=== PATIENT | female | born 1950 | race Caucasian/White ===

== ENCOUNTER 2016-06-11 08:27 | Outpatient (CLI) | payer OTHER | END 2016-06-11 08:28 | disposition home or self-care (01) | DX: E03.9 Hypothyroidism, unspecified (principal); E55.9 Vitamin D deficiency, unspecified; E11.9 Type 2 diabetes mellitus without complications; Z79.899 Other long term (current) drug therapy ==

== ENCOUNTER 2017-03-09 14:03 | Outpatient (CLI) | payer MEDICARE, OTHER ==
--- NOTE | 2017-03-12 15:04 | DEXA Report ---
DEXA SCAN: 03/09/2017 HISTORY: Primary ovarian failure. Steroid use, thyroid replacement therapy, and hormone replacement therapy. TECHNIQUE: Dual energy x-ray absorptiometry (DXA) was performed on a [employer] system. Regions measured are the AP spine, femoral neck, and, if needed, forearm. COMPARISON: None. In accordance with the International Society for Clinical Densitometry (ISCD) guidelines, data from previous exams may be reanalyzed using current recommendations and techniques. This is done to allow a more accurate basis for comparison with the current study. FINDINGS LUMBAR SPINE DATA: REGION BMD (g/cm/cm) T-SCORE Z-SCORE L1 0.966 -1.4 -0.9 L2 1.143 -0.5 0.0 L3 1.086 -0.9 -0.5 L4 1.369 1.4 1.9 TOTAL 1.157 -0.2 0.3 NOTE: All evaluable vertebrae are used for classification. HIP DATA: REGION BMD (g/cm/cm) T-SCORE Z-SCORE Neck 0.851 -1.3 -0.6 TOTAL 1.021 0.1 0.5 NOTE: The femoral neck or total proximal femur, whichever is lowest, is used for classification. IMPRESSION THE WHO CLASSIFICATION BASED ON THE INTERNATIONAL REFERENCE STANDARD: OSTEOPENIA , BASED ON THE LEFT FEMORAL NECK. FRACTURE RISK: INCREASED. RECOMMENDATION: Patients with diagnosis of osteoporosis or osteopenia should have regular bone mineral density assessment. For those eligible for Medicare, routine testing is allowed once every 2 years. Testing frequency can be increased for patients who have rapidly progressing disease or for those who are receiving medical therapy to restore bone mass. COMMENT: World Health Organization (WHO) definitions for osteoporosis and osteopenia: NORMAL BMD: T-score at -1.0 or higher, fracture risk is low. OSTEOPENIA BMD: T-score between -1.0 and -2.5, fracture risk is increased. OSTEOPOROSIS BMD: T-score at -2.5 or lower, fracture risk high. National Osteoporosis Foundation recommends: 1. Obtain adequate dietary calcium (at least 1200 mg per day) and vitamin D (400 -800 international units per day). 2. Participate, as appropriate, in regular weightbearing and muscle- strengthening exercise. 3. Avoid tobacco use and reduce alcohol and caffeine intake. 4. For more detailed information see the website at www.NOF.org. MTDD
== END 2017-03-09 14:04 | disposition home or self-care (01) ==
LOC: DI 14:03
PROVIDERS: ATTEND Physician Assistant Medical
DX: M85.88 Other specified disorders of bone density and structure, other site (principal)
CPT/HCPCS: 77080

== ENCOUNTER 2017-03-09 14:04 | Outpatient (CLI) | payer MEDICARE, OTHER ==
--- NOTE | 2017-03-10 11:17 | Mammography Report ---
BILATERAL MAMMOGRAM AND LEFT BREAST ULTRASOUND: 03/09/2017 HISTORY: Palpable lump 1 to 2-o'clock position left breast. COMPARISON: 11/09/2014, 08/26/2011, and 07/12/2010. TECHNIQUE: Bilateral digital CC and MLO projections of the breast with an additional left true later al view. There are scattered fibroglandular densities. There is no dominant mass, architectural distortion, s kin thickening, suspicious microcalcifications, or interval change since the prior mammogram. LEFT BREAST ULTRASOUND Real time scanning by the delicatessen manager with saved static images reviewed. In the left breast upper-outer quadrant, no cystic or solid mass is identified to account for the pal pable finding on clinical examination. IMPRESSION: NEGATIVE BILATERAL MAMMOGRAPHY AND LEFT BREAST ULTRASOUND. BIRADS CATEGORY: 1, NEGATIVE. SUGGEST RETURN TO ROUTINE SCREENING IN 12 MONTHS. SUGGEST CLINICAL FOLLOWUP OF THE CLINICALLY PALPAB LE FINDING. STANDARD QUALIFYING STATEMENTS 1. This examination was reviewed with the aid of Computed-Aided Detection (CAD). 2. A negative or benign imaging report should not delay biopsy if clinically suspicious findings are present. Consider surgical consultation if warranted. More than 5% of cancers are not identified b y imaging. 3. Dense breasts may obscure an underlying neoplasm. JOB #: [id number] EXT JOB #:[id number]
--- NOTE | 2017-03-10 11:18 | Ultrasound Report ---
LEFT BREAST ULTRASOUND: 03/09/2017 See the bilateral mammography report from the same day. JOB #: [id number] EXT JOB #: [id number] PEDRO
== END 2017-03-09 14:05 | disposition home or self-care (01) ==
LOC: DI 14:04
PROVIDERS: ATTEND Physician Assistant Medical
DX: N63.21 Unspecified lump in the left breast, upper outer quadrant (principal); M85.88 Other specified disorders of bone density and structure, other site
CPT/HCPCS: 76642; 77080; G0204; 77066

== ENCOUNTER 2017-05-27 15:53 | Outpatient (CLI) | payer MEDICARE, OTHER ==
[2017-05-27 14:39] LABS: BASOPHILS % (AUTO) 0.7 %; EOSINOPHILS # (AUTO) 0.1 10^3/uL (0.0-0.7); EOSINOPHILS % (AUTO) 1.8 %; HGB - HEMOGLOBIN 14.3 g/dL (12.0-16.0); LYMPHOCYTES # (AUTO) 1.4 10^3/uL (1.5-3.5); LYMPHOCYTES % (AUTO) 24.4 %; MEAN CORPUSCULAR HEMOGLOBIN 29.9 pg (27.0-31.0); MEAN CORPUSCULAR HGB CONC 34.1 g/dL (32.0-36.0); MEAN CORPUSCULAR VOLUME 87.8 fL (81.0-99.0); MEAN PLATELET VOLUME 10.4 fL (7.9-10.8); MONOCYTES # (AUTO) 0.5 10^3/uL (0.0-1.0); MONOCYTES % (AUTO) 7.8 %; NEUTROPHILS # (AUTO) 3.8 10^3/uL (1.5-6.6); NEUTROPHILS % (AUTO) 65.3 %; PLT - PLATELET COUNT 212 10^3/uL (130-450); RED BLOOD COUNT 4.77 10^6/uL (4.20-5.40); RED CELL DISTRIBUTION WIDTH 13.7 % (12.0-15.0); WHITE BLOOD COUNT 5.8 x10^3/uL (4.8-10.8)
[2017-05-27 14:54] LABS: ALBUMIN 4.3 g/dL (3.2-5.5); ALBUMIN/GLOBULIN RATIO 1.3 (1.0-2.2); BILIRUBIN,TOTAL 0.8 mg/dL (0.2-1.0); CALCIUM 9.4 mg/dL (8.5-10.3); CREATININE 0.9 mg/dL (0.4-1.0); TOTAL PROTEIN 7.6 g/dL (6.7-8.2)
[2017-05-27 16:07] LABS: HB2 TOTAL 15.9 g/dL; HEMOGLOBIN A1C 0.68 g/dL; HEMOGLOBIN A1C % 6.1 % (4.6-6.2)
== END 2017-05-27 15:54 | disposition home or self-care (01) ==
LOC: LAB.R 15:53
PROVIDERS: ATTEND Physician Assistant Medical
DX: R42 Dizziness and giddiness (principal); E11.9 Type 2 diabetes mellitus without complications; Z79.899 Other long term (current) drug therapy
CPT/HCPCS: 80053; 82607; 83036; 85025

== ENCOUNTER 2017-09-23 08:49 | Outpatient (CLI) | payer MEDICARE, OTHER ==
[2017-09-23 09:42] LABS: HEMOGLOBIN A1C 0.6 g/dL; HEMOGLOBIN A1C % 5.8 % (4.6-6.2)
== END 2017-09-23 08:50 | disposition home or self-care (01) ==
LOC: LAB 08:49
PROVIDERS: ATTEND Physician Assistant Medical
DX: E11.9 Type 2 diabetes mellitus without complications (principal); Z79.899 Other long term (current) drug therapy
CPT/HCPCS: 36415; 82947; 83036

== ENCOUNTER 2018-04-15 08:43 | Outpatient (CLI) | payer MEDICARE, OTHER ==
[2018-04-15 08:55] LABS: BASOPHILS % (AUTO) 0.6 %; EOSINOPHILS # (AUTO) 0.2 10^3/uL (0.0-0.7); EOSINOPHILS % (AUTO) 2.8 %; HGB - HEMOGLOBIN 13.9 g/dL (12.0-16.0); LYMPHOCYTES # (AUTO) 1.8 10^3/uL (1.5-3.5); LYMPHOCYTES % (AUTO) 26.9 %; MEAN CORPUSCULAR HEMOGLOBIN 30.2 pg (27.0-31.0); MEAN CORPUSCULAR HGB CONC 34.1 g/dL (32.0-36.0); MEAN CORPUSCULAR VOLUME 88.5 fL (81.0-99.0); MEAN PLATELET VOLUME 8.9 fL (7.9-10.8); MONOCYTES # (AUTO) 0.6 10^3/uL (0.0-1.0); MONOCYTES % (AUTO) 8.3 %; NEUTROPHILS # (AUTO) 4.2 10^3/uL (1.5-6.6); NEUTROPHILS % (AUTO) 61.4 %; PLT - PLATELET COUNT 210 10^3/uL (130-450); RED BLOOD COUNT 4.62 10^6/uL (4.20-5.40); WHITE BLOOD COUNT 6.9 x10^3/uL (4.8-10.8)
[2018-04-15 09:25] LABS: ALBUMIN 4.4 g/dL (3.2-5.5); ALBUMIN/GLOBULIN RATIO 1.6 (1.0-2.2); ALKALINE PHOSPHATASE 66 IU/L (42-121); ALT ALANINE AMINOTRANSFERASE 22 IU/L (10-60); AST ASPARTATE AMINOTRANSFERASE 20 IU/L (10-42); BILIRUBIN,TOTAL 0.6 mg/dL (0.2-1.0); BUN - BLOOD UREA NITROGEN 21 mg/dL (6-20); CALCIUM 9.2 mg/dL (8.5-10.3); CARBON DIOXIDE - CO2 26 mmol/L (21-32); CHLORIDE 100 mmol/L (101-111); CHOL/HDL RATIO 2.9 (<4.4); CHOLESTEROL 238 mg/dL; CREATININE 0.8 mg/dL (0.4-1.0); GFR - MDRD 72 (>89); GLUCOSE 137 mg/dL (70-100); HDL CHOLESTEROL 81 mg/dL; LDL CHOLESTEROL,CALCULATED 143 mg/dL; LDL/HDL RATIO 1.8 (<4.4); SODIUM 134 mmol/L (135-145); TOTAL PROTEIN 7.1 g/dL (6.7-8.2); VLDL CHOLESTEROL 14 mg/dL
[2018-04-15 09:27] LABS: HB2 TOTAL 15.1 g/dL; HEMOGLOBIN A1C 0.64 g/dL
== END 2018-04-15 08:44 | disposition home or self-care (01) ==
LOC: LAB 08:43
PROVIDERS: ATTEND Physician Assistant Medical
DX: E55.9 Vitamin D deficiency, unspecified (principal); E11.9 Type 2 diabetes mellitus without complications; I10 Essential (primary) hypertension; E03.9 Hypothyroidism, unspecified; Z79.899 Other long term (current) drug therapy
CPT/HCPCS: 36415; 80053; 80061; 82306; 83036; 83721; 84443; 85025

== ENCOUNTER 2018-06-02 09:55 | Outpatient (CLI) | payer MEDICARE, OTHER ==
--- NOTE | 2018-06-03 08:54 | Mammography Report ---
Reason: SCREENING MAMMO Procedure Date: 06/02/2018 Accession Number: [id number] / [id number] Procedure: VU - Screening Mammo w/Issa CPT Code: FULL RESULT: EXAM: Screening Mammo w/Issa DATE: 06/02/2018 10:33 AM CLINICAL HISTORY: Screening encounter. No reported risk factors. TECHNIQUE: Bilateral CC and MLO views were obtained. COMPARISON: 03/09/2017 through 07/12/2010. FINDINGS: The breasts demonstrate scattered fibroglandular densities bilaterally. In the left breast centrally and superiorly, 6.5 cm from the nipple on the MLO (image 65) projection is a previously obscured isodense 1.6 x 0.9 cm nodule, better seen on cc imaging 5.3 cm from the nipple on image 55. This requires additional evaluation by left breast ultrasound. Additionally, in the retroareolar lateral upper left breast approximately 3 cm from the nipple is a grouping of apparent fine calcifications with questionable architectural distortion which requires spot magnification views as well as possibly ultrasound, MLO image 39, cc image 37. No suspicious masses, clustered microcalcifications, or regions of architectural distortion are identified in the right breast. IMPRESSION: Incomplete examination RECOMMENDATION: Incomplete evaluation. Additional evaluation of 2 left breast findings with spot compression views and possibly ultrasound of the finding 3 cm from the nipple and focused left breast ultrasound of the finding in the upper left breast, 5 to 6.5 cm from the nipple depending on projection. BIRADS CATEGORY 0: Incomplete examination STANDARD QUALIFYING STATEMENTS: 1. This examination was not reviewed with the aid of Computer-Aided Detection (CAD). 2. A negative or benign imaging report should not delay biopsy if clinically suspicious findings are present. Consider surgical consultation if warrented. More than 5% of cancers are not identified by imaging. 3. Dense breasts may obscure an underlying neoplasm. 4. This examination was reviewed with the aid of 3D breast imaging (tomosynthesis).
== END 2018-06-02 09:56 | disposition home or self-care (01) ==
LOC: DI 09:55
PROVIDERS: ATTEND Physician Assistant Medical
DX: Z12.31 Encounter for screening mammogram for malignant neoplasm of breast (principal)
CPT/HCPCS: 77063; 77067

== ENCOUNTER 2018-06-22 10:06 | Outpatient (CLI) | payer MEDICARE, OTHER ==
--- NOTE | 2018-06-22 13:16 | Mammography Report ---
Reason: ABN MAMMO Procedure Date: 06/22/2018 Accession Number: [id number] / [id number] Procedure: VU - Diag Special Views Dig LT CPT Code: FULL RESULT: EXAM: Diag Special Views Dig LT DATE: 06/22/2018 11:08 AM CLINICAL HISTORY: Recall from recent screening exam 06/02/2018 for possible left breast calcifications anterior superior breast and oval 18 mm mass at 12:00. TECHNIQUE: Cone magnification left CC and MLO. 90 degree lateral 2-D/3-D mammography. COMPARISON: 06/02/2018 through 07/12/2010 FINDINGS: The breasts demonstrate scattered fibroglandular densities bilaterally. Left breast: Additional images are performed to evaluate possible faint calcifications in the anterior 12:00 breast. There are no suspicious calcifications on the coned magnified views. There is an 18 mm equal density oval mass with mixed circumscribed/partially obscured margins in the 12:00 breast middle depth which represents second finding recalled from screening. This finding is unchanged mammographically dating back to 2010 consistent with benign process. There are no suspicious masses, calcifications or areas of distortion. IMPRESSION: Left breast: No suspicious calcification in region of concern on recent screening exam. Other described finding is mammographically stable since 2010 consistent with benign process. Benign. BI-RADS Category 2. Recommend return to annual screening mammography. BI-RADS CATEGORY 2: Benign findings STANDARD QUALIFYING STATEMENTS: 1. This examination was not reviewed with the aid of Computer-Aided Detection (CAD). 2. A negative or benign imaging report should not preclude biopsy if clinically suspicious findings are present. 3. Dense breasts may obscure an underlying neoplasm. 4. This examination was reviewed with the aid of 3D breast imaging (tomosynthesis).
== END 2018-06-22 10:07 | disposition home or self-care (01) ==
LOC: DI 10:06
PROVIDERS: ATTEND Internal Medicine
DX: N63.42 Unspecified lump in left breast, subareolar (principal)

== ENCOUNTER 2019-01-11 16:43 | Outpatient (CLI) | payer MEDICARE, OTHER ==
--- NOTE | 2019-01-12 11:02 | XRAY Report ---
Reason: ACUTE LEFT CALCANEAL PAIN Procedure Date: 01/11/2019 Accession Number: [id number] / [id number] Procedure: XR - Calcaneus LT CPT Code: FULL RESULT: EXAM: LEFT ANKLE RADIOGRAPHY EXAM DATE: 01/11/2019 04:53 PM. CLINICAL HISTORY: Acute left calcaneal pain. COMPARISON: None. TECHNIQUE: 2 views. FINDINGS: Bones: No fractures or acute bone lesions. Mild to moderate nodular calcification/spurring at the Achilles calcaneal insertion. Joints: Normal. No effusion. No subluxations. The ankle mortise is normally aligned. Soft Tissues: Normal. No soft tissue swelling. IMPRESSION: 1. No acute abnormality. 2. Focal calcification/spurring at the Achilles calcaneal insertion. RADIA
== END 2019-01-11 16:44 | disposition home or self-care (01) ==
LOC: DI 16:43
PROVIDERS: ATTEND Podiatrist
DX: M77.32 Calcaneal spur, left foot (principal)

== ENCOUNTER 2019-02-10 07:39 | Outpatient (CLI) | payer MEDICARE, OTHER ==
[2019-02-10 08:12] LABS: BASOPHILS % (AUTO) 0.5 %; EOSINOPHILS # (AUTO) 0.2 10^3/uL (0.0-0.7); EOSINOPHILS % (AUTO) 3.2 %; HGB - HEMOGLOBIN 14.3 g/dL (12.0-16.0); LYMPHOCYTES # (AUTO) 1.9 10^3/uL (1.5-3.5); LYMPHOCYTES % (AUTO) 33.5 %; MEAN CORPUSCULAR HEMOGLOBIN 30.1 pg (27.0-31.0); MEAN CORPUSCULAR HGB CONC 33.4 g/dL (32.0-36.0); MEAN CORPUSCULAR VOLUME 90.1 fL (81.0-99.0); MEAN PLATELET VOLUME 11.3 fL (7.9-10.8); MONOCYTES # (AUTO) 0.5 10^3/uL (0.0-1.0); MONOCYTES % (AUTO) 8.9 %; NEUTROPHILS # (AUTO) 3.1 10^3/uL (1.5-6.6); NEUTROPHILS % (AUTO) 53.5 %; PLT - PLATELET COUNT 205 10^3/uL (130-450); RED BLOOD COUNT 4.75 10^6/uL (4.20-5.40); RED CELL DISTRIBUTION WIDTH 13.2 % (12.0-15.0); WHITE BLOOD COUNT 5.7 x10^3/uL (4.8-10.8)
[2019-02-10 08:28] LABS: HB2 TOTAL 9.5 g/dL; HEMOGLOBIN A1C 0.44 g/dL; HEMOGLOBIN A1C % 6.4 % (4.6-6.2)
[2019-02-10 08:35] LABS: ALBUMIN 4.4 g/dL (3.2-5.5); ALBUMIN/GLOBULIN RATIO 1.4 (1.0-2.2); ALKALINE PHOSPHATASE 60 IU/L (42-121); ALT ALANINE AMINOTRANSFERASE 24 IU/L (10-60); AST ASPARTATE AMINOTRANSFERASE 20 IU/L (10-42); BILIRUBIN,TOTAL 0.7 mg/dL (0.2-1.0); BUN - BLOOD UREA NITROGEN 23 mg/dL (6-20); CALCIUM 9.9 mg/dL (8.5-10.3); CARBON DIOXIDE - CO2 27 mmol/L (21-32); CHLORIDE 100 mmol/L (101-111); CHOL/HDL RATIO 2.8 (<4.4); CHOLESTEROL 236 mg/dL; CREATININE 0.8 mg/dL (0.4-1.0); GFR - MDRD 72 (>89); GLUCOSE 123 mg/dL (70-100); HDL CHOLESTEROL 83 mg/dL; LDL CHOLESTEROL,CALCULATED 142 mg/dL; LDL/HDL RATIO 1.7 (<4.4); SODIUM 137 mmol/L (135-145); TOTAL PROTEIN 7.6 g/dL (6.7-8.2); VLDL CHOLESTEROL 11 mg/dL
[2019-02-10 09:15] LABS: THYROID STIMULATING HORMONE 2.98 uIU/mL (0.34-5.60)
[2019-02-10 09:17] LABS: FREE T4 (FREE THYROXINE) 0.65 ng/dL (0.58-1.64)
[2019-02-10 09:26] LABS: TOTAL T3 1.22 ng/mL (0.87-1.78)
== END 2019-02-10 07:40 | disposition home or self-care (01) ==
LOC: LAB 07:39
PROVIDERS: ATTEND Internal Medicine
DX: M85.80 Other specified disorders of bone density and structure, unspecified site (principal); R73.03 Prediabetes; E78.5 Hyperlipidemia, unspecified; R53.83 Other fatigue; E53.8 Deficiency of other specified B group vitamins
CPT/HCPCS: 36415; 80053; 80061; 82043; 82306; 82607; 83036; 83721; 84439; 84443; 84480; 85025

== ENCOUNTER 2020-02-29 08:16 | Outpatient (CLI) | payer MEDICARE, OTHER ==
[2020-02-29 09:12] LABS: ALBUMIN 4.3 g/dL (3.2-5.5); ALBUMIN/GLOBULIN RATIO 1.5 (1.0-2.2); ALKALINE PHOSPHATASE 57 IU/L (42-121); ALT ALANINE AMINOTRANSFERASE 24 IU/L (10-60); AST ASPARTATE AMINOTRANSFERASE 18 IU/L (10-42); BILIRUBIN,TOTAL 0.5 mg/dL (0.2-1.0); BUN - BLOOD UREA NITROGEN 19 mg/dL (6-20); CALCIUM 9.8 mg/dL (8.5-10.3); CARBON DIOXIDE - CO2 26 mmol/L (21-32); CHLORIDE 102 mmol/L (101-111); CHOL/HDL RATIO 2.7 (<4.4); CHOLESTEROL 228 mg/dL; CREATININE 0.8 mg/dL (0.4-1.0); GLUCOSE 147 mg/dL (70-100); HDL CHOLESTEROL 84 mg/dL; LDL CHOLESTEROL,CALCULATED 130 mg/dL; LDL/HDL RATIO 1.5 (<4.4); SODIUM 139 mmol/L (135-145); TOTAL PROTEIN 7.2 g/dL (6.7-8.2); VLDL CHOLESTEROL 14 mg/dL
[2020-02-29 09:57] LABS: HEMOGLOBIN A1c% 6.4 % (4.27-6.07)
== END 2020-02-29 08:17 | disposition home or self-care (01) ==
LOC: LAB 08:16
PROVIDERS: ATTEND Internal Medicine
DX: E03.9 Hypothyroidism, unspecified (principal); R73.03 Prediabetes; I10 Essential (primary) hypertension; E78.5 Hyperlipidemia, unspecified; E53.8 Deficiency of other specified B group vitamins
CPT/HCPCS: 36415; 80053; 80061; 82607; 83036; 83721; 84443

== ENCOUNTER 2020-03-08 16:42 | Outpatient (CLI) | payer MEDICARE, OTHER ==
[2020-03-08 17:22] LABS: BASOPHILS % (AUTO) 0.4 %; EOSINOPHILS # (AUTO) 0.2 10^3/uL (0.0-0.7); EOSINOPHILS % (AUTO) 2.3 %; LYMPHOCYTES # (AUTO) 1.8 10^3/uL (1.5-3.5); LYMPHOCYTES % (AUTO) 24.3 %; MEAN CORPUSCULAR HEMOGLOBIN 29.4 pg (27.0-31.0); MEAN CORPUSCULAR HGB CONC 32.6 g/dL (32.0-36.0); MEAN CORPUSCULAR VOLUME 90.1 fL (81.0-99.0); MEAN PLATELET VOLUME 11.1 fL (7.9-10.8); MONOCYTES # (AUTO) 0.5 10^3/uL (0.0-1.0); MONOCYTES % (AUTO) 7.1 %; NEUTROPHILS # (AUTO) 4.8 10^3/uL (1.5-6.6); NEUTROPHILS % (AUTO) 65.5 %; PLT - PLATELET COUNT 241 10^3/uL (130-450); RED BLOOD COUNT 4.76 10^6/uL (4.20-5.40); RED CELL DISTRIBUTION WIDTH 13.2 % (12.0-15.0); WHITE BLOOD COUNT 7.3 x10^3/uL (4.8-10.8)
[2020-03-08 17:34] LABS: ALT ALANINE AMINOTRANSFERASE 28 IU/L (10-60); AMYLASE 37 U/L (28-100); AST ASPARTATE AMINOTRANSFERASE 22 IU/L (10-42); GAMMA GLUTAMYL TRANSPEPTIDASE 28 IU/L (8-38); LIPASE 23 U/L (22-51)
[2020-03-08 19:19] LABS: BILIRUBIN,URINE NEGATIVE (NEGATIVE); GLUCOSE, URINE (UA) NEGATIVE (NEGATIVE); KETONES,URINE (UA) NEGATIVE (NEGATIVE); LEUKOCYTE ESTERASE, URINE SMALL (NEGATIVE); NITRITE,URINE NEGATIVE (NEGATIVE); OCCULT BLOOD,URINE NEGATIVE (NEGATIVE); PH,URINE 5.5 PH (5.0-7.5); PROTEIN,URINE NEGATIVE (NEGATIVE); UROBILINOGEN,URINE 0.2 (NORMAL) E.U./dL (NORMAL)
[2020-03-08 19:23] LABS: CLARITY,URINE CLEAR (CLEAR)
[2020-03-08 19:51] LABS: BACTERIA,URINE Rare /HPF (None Seen); MUCUS,URINE Few Strands; RBC,URINE None Seen /HPF (0-5); SQUAMOUS EPITHELIAL CELL,UR FEW Squamous (<= Few)
== END 2020-03-08 16:43 | disposition home or self-care (01) ==
LOC: LAB 16:42
PROVIDERS: ATTEND Internal Medicine
DX: E78.5 Hyperlipidemia, unspecified (principal); R53.83 Other fatigue; R73.03 Prediabetes; R19.7 Diarrhea, unspecified; R19.5 Other fecal abnormalities
CPT/HCPCS: 36415; 81001; 81003; 82150; 82977; 83690; 84450; 84460; 85025; 86340; 87086

== ENCOUNTER 2020-03-26 22:29 | Emergency (ER) | payer MEDICARE, OTHER ==
[2020-03-26] MEDS ORDERED: FAMOTIDINE 20 MG/2 ML VIAL IVP STA (22:54)
[2020-03-26] MEDS ORDERED: KETOROLAC 15 MG/ML VIAL IVP STA (22:54)
[2020-03-26] MEDS ORDERED: SODIUM CHLORIDE 0.9% 1,000 ML IV STA (22:54)
[2020-03-26] MEDS ORDERED: ONDANSETRON 4 MG/2 ML VIAL IVP STA (22:54)
[2020-03-26] MEDS ORDERED: MORPHINE 2 MG/ML CARPUJECT IVP STA (23:45)
[2020-03-27 00:09] LABS: BASOPHILS % (AUTO) 0.3 %; EOSINOPHILS # (AUTO) 0.1 10^3/uL (0.0-0.7); HGB - HEMOGLOBIN 12.7 g/dL (12.0-16.0); LYMPHOCYTES # (AUTO) 1.3 10^3/uL (1.5-3.5); LYMPHOCYTES % (AUTO) 18.3 %; MEAN CORPUSCULAR HEMOGLOBIN 29.8 pg (27.0-31.0); MEAN CORPUSCULAR HGB CONC 32.6 g/dL (32.0-36.0); MEAN CORPUSCULAR VOLUME 91.3 fL (81.0-99.0); MEAN PLATELET VOLUME 11.3 fL (7.9-10.8); MONOCYTES # (AUTO) 0.5 10^3/uL (0.0-1.0); NEUTROPHILS # (AUTO) 5.1 10^3/uL (1.5-6.6); NEUTROPHILS % (AUTO) 72.1 %; PLT - PLATELET COUNT 193 10^3/uL (130-450); RED BLOOD COUNT 4.26 10^6/uL (4.20-5.40); RED CELL DISTRIBUTION WIDTH 13.4 % (12.0-15.0); WHITE BLOOD COUNT 7.1 x10^3/uL (4.8-10.8)
[2020-03-27 00:22] LABS: ALBUMIN 3.9 g/dL (3.2-5.5); ALBUMIN/GLOBULIN RATIO 1.4 (1.0-2.2); BILIRUBIN,TOTAL 0.8 mg/dL (0.2-1.0); CALCIUM 8.9 mg/dL (8.5-10.3); CREATININE 0.7 mg/dL (0.4-1.0); TOTAL PROTEIN 6.6 g/dL (6.7-8.2)
--- NOTE | 2020-03-27 00:50 | ED Physician Documentation ---
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 - Present Medications Home Medications: Ambulatory Orders Medication Instructions Recorded Confirmed Acyclovir [Zovirax] BID 03/26/20 Levothyroxine [Synthroid] 03/26/20 Metformin HCl [Metformin ER 03/26/20 Gastric] Oxycodone HCl/Acetaminophen 1 each PO Q8H PRN 2 Days #6 tablet 03/27/20 [Percocet 10-325 mg Tablet] - Allergies Allergies/Adverse Reactions: Allergies Allergy/AdvReac Type Severity Reaction Status Date / Time Sulfa (Sulfonamide AdvReac Cramps Verified 03/26/20 22:40 Antibiotics) - Social History Does the pt smoke?: No Smoking Status: Never smoker Does the pt drink ETOH?: No Does the pt have substance abuse?: No - Immunizations Immunizations are current?: Yes - POLST Patient has POLST: No Results - Vitals Vitals: Vital Signs - 24 hr 03/26/20 22:32 Temperature 36.5 C Heart Rate 89 Respiratory 16 Rate Blood Pressure 179/81 H O2 Saturation 98 Oxygen O2 Source Room air - Labs Labs: Laboratory Tests 03/26/20 03/26/20 03/26/20 00:04 00:04 00:04 WBC 7.1 RBC 4.26 Hgb 12.7 Hct 38.9 MCV 91.3 MCH 29.8 MCHC 32.6 RDW 13.4 Plt Count 193 MPV 11.3 H Neut # (Auto) 5.1 Lymph # (Auto) 1.3 L [place] # (Auto) 0.5 Eos # (Auto) 0.1 Baso # (Auto) 0.0 Absolute Nucleated RBC 0.00 Nucleated RBC % 0.0 Sodium 141 Potassium 3.9 Chloride 107 Carbon Dioxide 24 Anion Gap 10.0 BUN 22 H Creatinine 0.7 Estimated GFR (MDRD) 83 L Glucose 157 H Lactic Acid 0.7 Calcium 8.9 Total Bilirubin 0.8 AST 99 H ALT 65 H Alkaline Phosphatase 72 Total Protein 6.6 L Albumin 3.9 Globulin 2.7 Albumin/Globulin Ratio 1.4 Lipase 22 Departure - Departure Disposition: 01 Home, Self Care Clinical Impression: Gallstones, Abdominal pain, Back pain, Nausea Condition: Good Instructions: Gallstones Dc Follow-Up: Liborio Charles MD [Provider Admit Priv/Credential] - Prescriptions: Oxycodone HCl/Acetaminophen [Percocet 10-325 mg Tablet] 1 each PO Q8H PRN 2 Days #6 tablet PRN Reason: Abdominal Pain Comments: You have been seen in the emergency department for gallstones. There is no sign of infection at this time. You should return to the emergency department if you start to have fevers, if your pain is severe and not controlled with medicines at home, or for any new or worsening symptoms or other concerns. Follow-up with surgery clinic. You will need to have your gallbladder taken out routinely.
[2020-03-27 00:56] VITALS: BP 161/73
--- NOTE | 2020-03-27 06:21 | ED Physician Documentation ---
PD HPI ABD PAIN - Stated complaint Stated Complaint: BACK PX, SIDE PX - Chief complaint Chief Complaint: Abd Pain - History obtained from History obtained from: Patient - Additional information Additional information: 69-year-old woman with past medical history of diabetes and hypothyroidism presents with right upper quadrant abdominal pain sudden onset 2 hours prior to arrival about an hour after eating dinner. Pain is stabbing, intermittent, radiating to the back, worse with pressing on it, associated with mild nausea. Patient is unsure whether she has gallstones. Denies fevers, diarrhea, urinary symptoms, chest pain shortness of breath or palpitations. PSH hysterectomy. 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 - Present Medications Home Medications: Ambulatory Orders Medication Instructions Recorded Confirmed Acyclovir [Zovirax] BID 03/26/20 Levothyroxine [Synthroid] 03/26/20 Metformin HCl [Metformin ER 03/26/20 Gastric] Oxycodone HCl/Acetaminophen 1 each PO Q8H PRN 2 Days #6 tablet 03/27/20 [Percocet 10-325 mg Tablet] - Allergies Allergies/Adverse Reactions: Allergies Allergy/AdvReac Type Severity Reaction Status Date / Time Sulfa (Sulfonamide AdvReac Cramps Verified 03/26/20 22:40 Antibiotics) - Social History Does the pt smoke?: No Smoking Status: Never smoker Does the pt drink ETOH?: No Does the pt have substance abuse?: No - Immunizations Immunizations are current?: Yes - POLST Patient has POLST: No PD ED PE NORMAL - Vitals Vital signs reviewed: Yes - General General: Alert and oriented X 3 - HEENT HEENT: Atraumatic, PERRL, EOMI - Neck Neck: Supple, no meningeal sign - Cardiac Cardiac: RRR, No murmur - Respiratory Respiratory: No respiratory distress, Clear bilaterally - Abdomen Abdomen: Other (RUQ ttp. otherwise ntnd) - Female Female : Deferred - Rectal Rectal: Deferred - Back Back: No CVA TTP - Derm Derm: Normal color - Extremities Extremities: No deformity, No edema - Neuro Neuro: Alert and oriented X 3 - Psych Psych: Normal mood, Normal affect Results - Vitals Vitals: Vital Signs - 24 hr 03/26/20 03/27/20 22:32 00:56 Temperature 36.5 C Heart Rate 89 78 Respiratory 16 17 Rate Blood Pressure 179/81 H 161/73 H O2 Saturation 98 99 Oxygen O2 Source Room air - Labs Labs: Laboratory Tests 03/26/20 03/26/20 03/26/20 00:04 00:04 00:04 WBC 7.1 RBC 4.26 Hgb 12.7 Hct 38.9 MCV 91.3 MCH 29.8 MCHC 32.6 RDW 13.4 Plt Count 193 MPV 11.3 H Neut # (Auto) 5.1 Lymph # (Auto) 1.3 L [place] # (Auto) 0.5 Eos # (Auto) 0.1 Baso # (Auto) 0.0 Absolute Nucleated RBC 0.00 Nucleated RBC % 0.0 Sodium 141 Potassium 3.9 Chloride 107 Carbon Dioxide 24 Anion Gap 10.0 BUN 22 H Creatinine 0.7 Estimated GFR (MDRD) 83 L Glucose 157 H Lactic Acid 0.7 Calcium 8.9 Total Bilirubin 0.8 AST 99 H ALT 65 H Alkaline Phosphatase 72 Total Protein 6.6 L Albumin 3.9 Globulin 2.7 Albumin/Globulin Ratio 1.4 Lipase 22 PD MEDICAL DECISION MAKING - ED course Complexity details: reviewed results, re-evaluated patient ED course: 69-year-old woman found to have gallstones on ultrasound. Pain controlled with IV pain medicine. Given that she does not appear to have a gallbladder infection she can follow-up as outpatient for routine cholecystectomy. Strict return precautions given. Follow-up with surgery clinic Departure - Departure Disposition: 01 Home, Self Care Clinical Impression: Gallstones, Abdominal pain, Back pain, Nausea Condition: Good Instructions: Gallstones Dc Follow-Up: Liborio Charles MD [Provider Admit Priv/Credential] - Prescriptions: Oxycodone HCl/Acetaminophen [Percocet 10-325 mg Tablet] 1 each PO Q8H PRN 2 Days #6 tablet PRN Reason: Abdominal Pain Comments: You have been seen in the emergency department for gallstones. There is no sign of infection at this time. You should return to the emergency department if you start to have fevers, if your pain is severe and not controlled with medicines a t home, or for any new or worsening symptoms or other concerns. Follow-up with surgery clinic. You will need to have your gallbladder taken out routinely. Discharge Date/Time: 03/27/20 01:09
--- NOTE | 2020-03-27 08:52 | Ultrasound Report ---
PROCEDURE: Abdomen Limited INDICATIONS: RUQ pain TECHNIQUE: Real-time focused scanning was performed of the abdomen, with image documentation. COMPARISON: None. FINDINGS: Right upper quadrant ultrasound Limited evaluation at clinician request. The liver measure s 16.9 cm craniocaudad, within normal limits, but is hyperechoic consistent with generalized fatty in filtration. No focal liver lesion is seen. The gallbladder measures 2.8 mm in maximal thickness, and there is a finding of both sludge and dependent layering gallstones, without evidence of adjacent lizy iary obstruction. The common duct measures 4.7 mm, normal. Quality of visualization is somewhat limit ed by overlying bowel gas. The pancreas visualization also is limited by bowel gas. The spleen is not assessed, the right kidney appears normal, with an extrarenal pelvis. IMPRESSION: Prominent fatty infiltration throughout the liver. No biliary distention or evidence of acute cholecy stitis is found. There are, however, gallstones within the gallbladder lumen and a small amount of sl udge. The absence of biliary distention at the common duct would argue against a common duct stone as cause of the current right upper quadrant pain. Reviewed by: Virgil Horan MD on 03/27/2020 8:51 AM PST Approved by: Virgil Horan MD on 03/27/2020 8:51 AM PST Station ID: [id number]
== END 2020-03-27 01:09 | disposition home or self-care (01) ==
LOC: ED 22:29
DX: K80.20 Calculus of gallbladder without cholecystitis without obstruction (principal); K76.0 Fatty (change of) liver, not elsewhere classified; R11.0 Nausea; M54.9 Dorsalgia, unspecified; I10 Essential (primary) hypertension; E11.9 Type 2 diabetes mellitus without complications; Z79.84 Long term (current) use of oral hypoglycemic drugs; E03.9 Hypothyroidism, unspecified
CPT/HCPCS: 36415; 80053; 83605; 83690; 85025; 96374; 96375; 99285

== ENCOUNTER 2020-04-12 13:40 | Outpatient (CLI) | payer MEDICARE, OTHER ==
--- OUTSIDE RECORDS SUMMARY | 2020-04-18 01:13 | EXTERNAL MEDICAL SUMMARY RPT | Continuity of Care Document ---
:1950 Demographics Phone Unavailable Preferred Language Frisian Marital Status Unknown Quaker Affiliation Unknown Race Unknown Ethnic Group Unknown Author Organization [facility] Address [address] [place] [address] Phone Care Team Providers Name Role Phone Rochier Unavailable Unavailable JEWEL HOLE CORNERER Unavailable Unavailable JOSELO Unavailable Unavailable Good Unavailable Unavailable Clay Unavailable Unavailable Problems date description facility 2012-09-13 11:30 HERPES SIMPLEX NOS [facility] 2012-09-13 11:30 HYPERTENSION NOS [facility] 2013-09-12 08:40 HYPOTHYROIDISM NOS [facility] 2013-09-12 08:40 HYPERCALCEMIA [facility] 2013-09-12 08:40 OTH MALAISE FATIGUE [facility] 2013-09-12 08:40 ABN BLOOD CHEMISTRY NEC [facility] 2013-11-16 16:15 HYPOTHYROIDISM NOS [facility] 2013-11-16 16:15 OTH MED,LT,CURRENT USE [facility] 2014-10-03 08:40 HYPOTHYROIDISM NOS [facility] 2014-10-03 08:40 VITAMIN D DEFICIENCY NOS [facility] 2014-10-03 08:40 OTH MED,LT,CURRENT USE [facility] 2014-10-03 08:40 ROUTINE MEDICAL EXAM [facility] 2014-11-09 12:49 OTH SCREEN MAMMO-MALIGN [facility] NEOPLASM OF BREAST 2015-05-04 08:25 VITAMIN D DEFICIENCY, [facility] UNSPECIFIED 2015-05-04 08:25 OTHER ABNORMAL GLUCOSE [facility] 2015-05-04 08:25 OTHER BORDER INSPECTOR (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 2015-11-05 08:26 ESSENTIAL (PRIMARY) [facility] HYPERTENSION 2015-11-05 08:26 OTHER ABNORMAL GLUCOSE [facility] 2015-11-05 08:26 ENCNTR FOR GENERAL ADULT [facility] MEDICAL EXAM W/O ABNORMAL FINDINGS 2015-11-12 14:37 PRIMARY OSTEOARTHRITIS, RIGHT [facility] ANKLE AND FOOT 2016-06-11 08:27 HYPOTHYROIDISM, UNSPECIFIED [facility] 2016-06-11 08:27 TYPE 2 DIABETES MELLITUS [facility] WITHOUT COMPLICATIONS 2016-06-11 08:27 VITAMIN D DEFICIENCY, [facility] UNSPECIFIED 2016-06-11 08:27 OTHER BORDER INSPECTOR (CURRENT) DRUG [facility]ERAP[facility] 2017-02-11 08:53 HYPOTHYROIDISM, UNSPECIFIED [facility] 2017-02-11 08:53 TYPE 2 DIABETES MELLITUS [facility] WITHOUT COMPLICATIONS 2017-02-11 08:53 ESSENTIAL (PRIMARY) [facility] HYPERTENSION 2017-02-11 08:53 ENCOUNTER FOR SCREENING FOR [facility] OTHER VIRAL DISEASES 2017-02-11 08:53 OTHER BORDER INSPECTOR (CURRENT) DRUG [facility] THERAPY 2017-03-09 14:03 OTH DISRD OF BONE DENSITY AND [facility] STRUCTURE, OTHER SITE 2017-03-09 14:04 OTH DISRD OF BONE DENSITY AND [facility] STRUCTURE, OTHER SITE 2017-03-09 14:04 UNSPECIFIED LUMP IN THE LEFT [facility] BREAST, UPPER OUTER QUADRANT 2017-05-27 15:53 TYPE 2 DIABETES MELLITUS [facility] WITHOUT COMPLICATIONS 2017-05-27 15:53 DIZZINESS AND GIDDINESS [facility] 2017-05-27 15:53 OTHER BORDER INSPECTOR (CURRENT) DRUG [facility] THERAPY 2017-09-23 08:49 TYPE 2 DIABETES MELLITUS [facility] WITHOUT COMPLICATIONS 2017-09-23 08:49 OTHER SENIOR LIVING (CURRENT) DRUG [facility] THERAP[facility] 2018-04-15 08:43 HYPOTHYROIDISM, UNSPECIFIED [facility] 2018-04-15 08:43 TYPE 2 DIABETES MELLITUS [facility] WITHOUT COMPLICATIONS 2018-04-15 08:43 [facility]ENC[facility] 2018-04-15 08:43 ESSENTIAL (PRIMARY) [facility] HYPERTENSION 2018-04-15 08:43 OTHER BORDER INSPECTOR (CURRENT) DRUG [facility] THERAPY 2018-06-02 09:55 ENCNTR SCREEN MAMMOGRAM FOR [facility] MALIGNANT NEOPLASM OF BREAST 2018-06-22 10:06 UNSPECIFIED LUMP IN LEFT [facility] BREAST, SUBAREOLAR 2019-01-11 16:43 CALCANEAL SPUR, LEFT FOOT [facility] 2019-02-10 07:39 DEFICIENCY OF OTHER SPECIFIED B [facility] GROUP VITAMINS 2019-02-10 07:39 HYPERLIPIDEMIA, [facility]IED [facility] 2019-02-10 07:39 OTH DISRD OF BONE DENSITY AND [facility] STRUCTURE, UNSPECIFIED SITE 2019-02-10 07:39 OTHER FATIGUE [facility] 2019-02-10 07:39 PREDIABETES [facility] 2020-02-29 08:16 HYPOTHYROIDISM, UNSPECIFIED [facility] 2020-02-29 08:16 DEFICIENCY OF OTHER SPECIFIED B [facility] GROUP VITAMINS 2020-02-29 08:16 HYPERLIPIDEMIA, UNSPECIFIED [facility] 2020-02-29 08:16 ESSENTIAL (PRIMARY) [facility] HYPERTENSION 2020-02-29 08:16 [facility]ES [facility] 2020-03-08 16:42 HYPERLIPIDEMIA, UNSPECIFIED [facility] 2020-03-08 16:42 OTHER FECAL ABNORMALITIES [facility] 2020-03-08 16:42 DIARRHEA, [facility]PECIFIED [facility] 2020-03-08 16:42 OTHER FATIGUE [facility] 2020-03-08 16:42 PREDIABETES [facility] 2020-03-26 22:29 HYPOTHYROIDISM, UNSPECIFIED [facility] 2020-03-26 22:29 ESSENTIAL (PRIMARY) [facility] HYPERTENSION 2020-03-26 22:29 CALCULUS OF GALLBLADDER W/O [facility] CHOLECYSTITIS W/O OBST 2020-03-26 22:29 [facility] 2020-03-26 22:29 TYPE 2 DIABETES MELLITUS [facility] WITHOUT COMPLICATIONS 2020-03-26 22:29 FATTY (CHANGE OF) LIVER, NOT [facility] ELSEWHERE CLASSIFIED 2020-03-26 22:29 CALCULUS OF GALLBLADDER W/O [facility] CHOLECYSTITIS W/O OBSTRUCTION 2020-03-26 22:29 DORSALGIA, UNSPECIFIED [facility] [place] 2020-03-26 22:29 RIGHT UPPER QUADRANT PAIN [facility] 2020-03-26 22:29 SENIOR LIVING (CURRENT) USE OF ORAL [facility] HYPOGLYCEMIC DRUGS 2020-03-27 00:00:00 Calculus of gallbladder without [facility] mention of cholecystitis, [place] [facility] without mention of obstruction 2020-03-27 00:00:00 Backache, unspecified [facility] 2020-03-27 00:00:00 Calculus of gallbladder without [facility] cholecystitis without [place] [facility] obstruction 2020-03-27 00:00:00 Dorsalgia, unspecified [facility] 2020-03-27 00:00:00 Backache [facility] 2020-04-11 00:00:00 Alcohol intake [facility] 2020-04-11 00:00:00 Health-related behavior [facility] 2020-04-11 00:00:00 [facility] exposure [facility] 2020-04-11 00:00:00 Exercise [facility] 2020-04-11 00:00:00 Never smoker [facility] 2020-04-11 00:00:00 [facility] use [facility] 2020-04-11 00:00:00 Tobacco [facility] [place] [facility] Allergies date description facility NO KNOWN ALLERGIES [facility] Sulfa (Sulfonamide Antibiotics) [facility] Sulfa (Sulfonamide Antibiotics) [facility] Sulfa (Sulfonamide Antibiotics) [facility] CAT HAIR EXTRACT [facility] HYDROCODONE [facility] POLLEN EXTRACT [facility] PENICILLINS [facility] SULFA ANTIBIOTICS [facility] NO KNOWN ALLERGIES [facility] NO ALLERGY INFORMATION AVAILABLE [facility] NO KNOWN ALLERGIES [facility] Sulfa (Sulfonamide Antibiotics) [facility] Sulfa (Sulfonamide Antibiotics) [facility] Medications date description facility Patient decision [facility] [place] [facility] Procedure refused [facility] [place] [facility] null [facility] 2020-04-11 00:00:00 null [facility] 2020-04-11 00:00:00 null [facility] [place] [facility] 2020-04-11 00:00:00 CY[facility]OCOBALAMIN [facility] [place] [facility] 2020-04-11 00:00:00 [facility]OCOBALAMIN [facility] [place] [facility] 2020-04-17 00:00:00 null [facility] [place] [facility] 2020-04-17 00:00:00 null [facility] [place] [facility] 2020-04-17 00:00:00 PROMETHAZINE HCL [facility] [place] [facility] 2020-04-17 00:00:00 PROMETHAZINE HCL [facility] [place] [facility] Results Social History date description facility 2020-04-11 00:00:00 [facility] smoker [facility] [place] [facility] Social History date description facility 2020-04-11 00:00:00 Never smoker [facility] date description facility [id number]
== END 2020-04-12 13:41 | disposition home or self-care (01) ==
LOC: COV 13:40
PROVIDERS: ATTEND Surgery
DX: Z01.812 Encounter for preprocedural laboratory examination (principal); K80.10 Calculus of gallbladder with chronic cholecystitis without obstruction; E11.9 Type 2 diabetes mellitus without complications; Z20.822 Contact with and (suspected) exposure to COVID-19

== ENCOUNTER 2020-04-16 06:32 | Day surgery (SDC) | payer MEDICARE, OTHER ==
[~2020-04-16 06:32] MED LIST: ceFAZolin 2 GM/50 ML 2 GM/50 ML BAG IV ONE
[2020-04-16] MEDS ORDERED: LACTATED RINGERS 1,000 ML IV ONE ×2 (06:54→08:52)
[2020-04-16] MEDS ORDERED: LIDOCAINE 1% 50 ML MDV ONE (06:59)
[2020-04-16] MEDS ORDERED: BUPIVACAINE 0.5%-EPI 1:200000 PF 30 ML VIAL ONE (06:59)
--- NOTE | 2020-04-16 07:15 | ANESTHESIA ---
Pre-Anesthesia VS, & Labs - Diagnosis cholelithiasis, cholecystitis - Procedure lap daniel Vital Signs: Temp Pulse Resp BP Pulse Ox 36.0 C L 93 16 189/78 H 95 04/16/20 06:35 04/16/20 06:35 04/16/20 06:35 04/16/20 06:35 04/16/20 06:35 Height: 5 ft 4 in Weight (kg): 97.3 kg Body Mass Index: 36.8 BMI Classification: Obese - NPO >8 hours - Is Patient ?: No - Lab Results Current Lab Results: Laboratory Tests 04/16/20 06:58: POC Whole Bld Glucose 123 H Home Medications and Allergies Home Medications: Ambulatory Orders C,E,Zinc,Copper 11/Cqcvp7t/Lut [Ocuvite Adult 50 Plus Softgel] 1 each PO DAILY 04/12/20 Calcium Carbonate [Elemental Calcium] 600 mg PO DAILY 04/12/20 Cholecalciferol [Vitamin D3] 10,000 unit PO DAILY 04/12/20 Chromium Picolinate 1,000 mcg PO DAILY 04/12/20 Cinnamon 1,200 mg PO DAILY 04/12/20 Cyanocobalamin [Vitamin B-12] 1,000 mcg IM ONCE 04/12/20 Diclofenac Sodium [Arthritis Pain] 1 applic TP PRN PRN 04/12/20 Doxylamine Succinate [Unisom] 25 mg PO QPM PRN 04/12/20 Ibuprofen [Advil] 400 - 600 mg PO Q6HR PRN 04/12/20 Lactobacill 46/B.animal/Inulin [Probiotic-10 10 Bill Cell Cap] 4 cap PO DAILY 04/12/20 Liothyronine [Cytomel] 5 mcg PO BID 04/12/20 Loratadine [Claritin] 10 mg PO DAILY PRN 04/12/20 Magnesium Oxide [Magnesium] 400 mg PO DAILY 04/12/20 [place]-3 Fatty Acids/Fish Oil [[place]-3 Fish Oil 1,000 mg Sfgl] 2,000 mg PO DAILY 04/12/20 Pantoprazole [Protonix] 40 mg PO DAILY 04/12/20 Phytonadione (Vit K1) [Vitamin K] 550 mcg PO DAILY 04/12/20 Potassium Citrate [Potassium Citrate ER] 99 mg PO DAILY 04/12/20 Pseudoephedrine HCl [Sudafed] 30 mg PO PRN PRN 04/12/20 Psyllium Husk [Fiber] 1 cap PO DAILY 04/12/20 Selenium 200 mcg PO DAILY 04/12/20 Turmeric Root Extract [Turmeric] 1,500 mg PO DAILY 04/12/20 guaiFENesin [Mucinex] 600 mg PO DAILY PRN 04/12/20 Acyclovir [Zovirax] 400 mg PO BID 03/26/20 Levothyroxine [Synthroid] 25 mcg PO DAILY 03/26/20 Metformin HCl [Metformin ER Gastric] 500 mg PO DAILY 03/26/20 C,E,Zinc,Copper 11/Eesca5m/Lut [Ocuvite Adult 50 Plus Softgel] 1 each PO DAILY 04/12/20 Calcium Carbonate [Elemental Calcium] 600 mg PO DAILY 04/12/20 Cholecalciferol [Vitamin D3] 10,000 unit PO DAILY 04/12/20 Chromium Picolinate 1,000 mcg PO DAILY 04/12/20 Cinnamon 1,200 mg PO DAILY 04/12/20 Cyanocobalamin [Vitamin B-12] 1,000 mcg IM ONCE 04/12/20 Diclofenac Sodium [Arthritis Pain] 1 applic TP PRN PRN 04/12/20 Doxylamine Succinate [Unisom] 25 mg PO QPM PRN 04/12/20 Ibuprofen [Advil] 400 - 600 mg PO Q6HR PRN 04/12/20 Lactobacill 46/B.animal/Inulin [Probiotic-10 10 Bill Cell Cap] 4 cap PO DAILY 04/12/20 Liothyronine [Cytomel] 5 mcg PO BID 04/12/20 Loratadine [Claritin] 10 mg PO DAILY PRN 04/12/20 Magnesium Oxide [Magnesium] 400 mg PO DAILY 04/12/20 [place]-3 Fatty Acids/Fish Oil [[place]-3 Fish Oil 1,000 mg Sfgl] 2,000 mg PO DAILY 04/12/20 Pantoprazole [Protonix] 40 mg PO DAILY 04/12/20 Phytonadione (Vit K1) [Vitamin K] 550 mcg PO DAILY 04/12/20 Potassium Citrate [Potassium Citrate ER] 99 mg PO DAILY 04/12/20 Pseudoephedrine HCl [Sudafed] 30 mg PO PRN PRN 04/12/20 Psyllium Husk [Fiber] 1 cap PO DAILY 04/12/20 Selenium 200 mcg PO DAILY 04/12/20 Turmeric Root Extract [Turmeric] 1,500 mg PO DAILY 04/12/20 guaiFENesin [Mucinex] 600 mg PO DAILY PRN 04/12/20 Allergies/Adverse Reactions: Allergies Allergy/AdvReac Type Severity Reaction Status Date / Time Sulfa (Sulfonamide AdvReac Nausea Verified 04/11/20 12:33 Antibiotics) Anes History & Medical History - Anesthetic History Anesthesia Complications: reports: Post-Operative Nausea/Vomiting - Medical History Cardiovascular: reports: Hypertension Pulmonary: reports: None Gastrointestinal: reports: GERD, Cholelithiasis Urinary: reports: None Neuro: reports: None Musculoskeletal: reports: Osteoarthritis Endocrine/Autoimmune: reports: Type 2 diabetes, HyPOthyroidism Blood Disorders: reports: None Skin: reports: None Smoking Status: Never smoker Psychosocial: reports: No issues indicated History of Cancer?: No - Surgical History General: Colonoscopy Gynecologic: Hysterectomy, Other Orthopedic: Carpal Tunnel surgery, Other Exam General: Alert, Oriented x3, Cooperative, No acute distress Dental: WNL Mouth Openin Fingerbreadth Neck Mobility: Normal Mallampati classification: III Thyromental Distance: 4-6 cm Respiratory: Lungs clear, Normal breath sounds, No respiratory distress, No accessory muscle use Cardiovascular: Regular rate, Normal S1, Normal S2, No murmurs Mental/Cognitive Status: Alert/Oriented X3, Normal for patient Plan Anesthesia Type: General Consent for Procedure(s) Verified and Reviewed: Yes Code Status: Attempt Resuscitation ASA classification: 2-Mild systemic disease Is this case an emergency?: No
[2020-04-16] MEDS ORDERED: LABETALOL 20 MG/4 ML SYRINGE IVP ONE ×2 (07:22→07:42)
[2020-04-16] MEDS ORDERED: ROCURONIUM 50 MG/5 ML VIAL ONE (07:42)
[2020-04-16] MEDS ORDERED: PROPOFOL 200 MG/20 ML VIAL IVP ONE (07:42)
[2020-04-16] MEDS ORDERED: DEXAMETHASONE 4 MG/ML VIAL ONE (07:42)
[2020-04-16] MEDS ORDERED: LIDOCAINE-MPF 2% 5 ML VIAL ONE (07:42)
[2020-04-16] MEDS ORDERED: ONDANSETRON 4 MG/2 ML VIAL ONE (07:42)
[2020-04-16] MEDS ORDERED: MIDAZOLAM 2 MG/2 ML VIAL ONE (07:43)
[2020-04-16] MEDS ORDERED: fentaNYL 100 MCG/2 ML VIAL ONE (07:43)
[2020-04-16] MEDS ORDERED: SCOPOLAMINE PATCH TOP SCH (08:00)
[2020-04-16] MEDS ORDERED: BUPIVACAINE 0.5%-EPI 1:200000 PF 30 ML VIAL SUBQ ONE ×2 (08:11→08:33)
[2020-04-16] MEDS ORDERED: LIDOCAINE 1% 50 ML MDV SUBQ ONE ×2 (08:13→08:33)
[2020-04-16] MEDS ORDERED: ePHEDrine 50 MG/ML VIAL IVP ONE (08:13)
[2020-04-16] MEDS ORDERED: GLYCOPYRROLATE 1 MG/5 ML VIAL ONE (08:28)
[2020-04-16] MEDS ORDERED: SUGAMMADEX 200 MG/2 ML VIAL IVP ONE (08:40)
[2020-04-16] MEDS ORDERED: oxyCODONE 5 MG TABLET PO PRN (08:42)
[2020-04-16] MEDS ORDERED: IBUPROFEN 600 MG TABLET PO PRN (08:42)
[2020-04-16] MEDS ORDERED: ACETAMINOPHEN 325 MG TABLET PO PRN (08:42)
[2020-04-16] MEDS ORDERED: ONDANSETRON 4 MG/2 ML VIAL IVP PRN ×2 (08:42→09:01)
--- NOTE | 2020-04-16 08:42 | OPERATIVE REPORT ---
Operative Report - General Procedure Date: 04/16/20 Planned Procedure: Laparoscopic cholecystectomy Pre-Op Diagnosis: Cholelithiasis and chronic cholecystitis Procedure Performed: Laparoscopic cholecystectomy Post Op Diagnosis: Same - Procedure Note Primary Surgeon: Araceli Anesthesia Provider: Coleman Anesthesia Technique: General ET tube, Local Pathology: Gallbladder in formalin to pathology Estimated Blood Loss (mL): 5 Indications: Right upper quadrant pain Findings: Thickened gallbladder with no significant right upper quadrant adhesions Complications: None apparent - Other Other Information/Narrative: After obtaining informed consent the patient is brought to the operating room and placed in the supine position on the operating table. Following successful induction of general endotracheal anesthesia, appropriate padding of all bony prominences, and placement of appropriate monitors, the abdomen was prepped and draped in the standard surgical fashion. A timeout was held per scope protocol. All elements of the surgical safety checklist were followed before, during, and after the procedure. Following infiltration with local anesthetic to create a field block, an incision was created inferior to the umbilicus and carried down through the skin and subcutaneous tissue to reveal the fascia below. 2-0 Vicryl retention sutures were placed on either side of the midline and the abdomen was entered under direct vision using a 15 blade scalpel. A 10 mm blunt Amezcua balloon trocar was placed in the abdominal cavity and it was insufflated to 15 mmHg pressure. The patient was placed in reverse Trendelenburg position with the left side rotated toward the floor. A second trocar, 5 mm, was placed in the midepigastrium under direct vision and after anesthetization of the surrounding skin.A third trocar, also 5 mm was placed in the right upper quadrant for retraction of the gallbladder and a fourth 1 just medial to that as a working port as well. The gallbladder was examined. It was adherent to the surrounding structures including the omentum and the right colon. These structures were carefully dissected free from the surface of the gallbladder using a mixture of blunt and sharp dissection. The fundus of the gallbladder was then grasped and elevated up over the liver revealing the cholecysto hepatoduodenal ligament. Th e neck of the gallbladder was retracted laterally and the cystic duct and artery were carefully identified. The common duct was visualized but not skeletonized. The cystic duct was clipped 3 times proximally and once distally and divided, the cystic artery was clipped twice proximally, once distally, and divided. The gallbladder was then liberated from its bed in the liver using cautery. It was placed in an Endo Catch bag and removed via the umbilical port with a camera in the epigastric position. The camera was replaced in the umbilical position and the abdomen was checked for hemostasis. It was irrigated with warm saline solution and aspirated free of all fluid and particulate matter. The trochars were then removed under direct vision and the abdomen desufflated. The umbilical incision was closed with interrupted Vicryl suture and Monocryl was placed in all of the skin incisions. All sponge, needle, and instrument counts were correct at the conclusion of the case. The patient was allowed awaken from anesthesia without difficulty and taken to the postanesthesia care unit in good condition.
[2020-04-16] MEDS ORDERED: ATROPINE ABBOJECT 1 MG/10 ML SYRINGE IVP PRN (09:01)
[2020-04-16] MEDS ORDERED: HYDROmorphone 0.5 MG/0.5 ML SYRINGE IVP PRN (09:01)
[2020-04-16] MEDS ORDERED: NALOXONE 0.4 MG/ML VIAL IVP PRN (09:01)
[2020-04-16] MEDS ORDERED: MORPHINE 2 MG/ML CARPUJECT IVP PRN (09:01)
[2020-04-16] MEDS ORDERED: fentaNYL 100 MCG/2 ML VIAL IVP PRN ×2 (09:01→10:35)
[2020-04-16] MEDS: HYDROmorphone 1 MG/ML CARPUJECT ONE ×2 (09:05→09:10)
[2020-04-16] MEDS ORDERED: KETOROLAC 15 MG/ML VIAL IVP ONE (09:21)
[2020-04-16] MEDS ORDERED: ACETAMINOPHEN 1,000 MG/100 ML 100 ML IV ONE (09:21)
--- NOTE | 2020-04-16 09:36 | ANESTHESIA POST OP EVALUATION ---
Anesthesia Post Eval - Post Anesthesia Eval Vitals: Last Vital Signs Temp 36.6 C 04/16/20 09:30 Pulse 79 04/16/20 09:30 Resp 18 04/16/20 09:30 BP 159/78 H 04/16/20 09:30 Pulse Ox 99 04/16/20 09:30 CV Function Including HR & BP: positive: Stable Pain Control: positive: Satisfactory Nausea & Vomiting: positive: Negative Mental Status: positive: Baseline Respiratory Status: Airway Patent Hydration Status: Satisfactory Anesthesia Complications: positive: None
[2020-04-16] MEDS ORDERED: LACTATED RINGERS 1,000 ML IV SCH (10:00)
[2020-04-16 10:21] VITALS: BP 131/62
== END 2020-04-16 06:33 | disposition home or self-care (01) ==
LOC: SDS 06:32
PROVIDERS: ATTEND Surgery
PROC: 0FT44ZZ Resection of Gallbladder, Percutaneous Endoscopic Approach (ICD-10-PCS; principal; 2020-04-16 07:30)
DX: K80.10 Calculus of gallbladder with chronic cholecystitis without obstruction (principal); E66.9 Obesity, unspecified; Z68.36 Body mass index [BMI] 36.0-36.9, adult; I10 Essential (primary) hypertension; K21.9 Gastro-esophageal reflux disease without esophagitis; E11.9 Type 2 diabetes mellitus without complications; E03.9 Hypothyroidism, unspecified; J45.909 Unspecified asthma, uncomplicated; B00.9 Herpesviral infection, unspecified; H35.30 Unspecified macular degeneration; Z79.51 Long term (current) use of inhaled steroids; Z79.84 Long term (current) use of oral hypoglycemic drugs; Z79.899 Other long term (current) drug therapy
CPT/HCPCS: 47562; J0131; J0690; J1170; J3490; J7120

== ENCOUNTER 2020-06-13 10:05 | Outpatient (CLI) | payer MEDICARE, OTHER ==
[2020-06-13 10:43] LABS: BASOPHILS % (AUTO) 0.5 %; EOSINOPHILS # (AUTO) 0.2 10^3/uL (0.0-0.7); EOSINOPHILS % (AUTO) 2.9 %; HCT - HEMATOCRIT 42.2 % (37.0-47.0); HGB - HEMOGLOBIN 13.9 g/dL (12.0-16.0); LYMPHOCYTES # (AUTO) 1.7 10^3/uL (1.5-3.5); LYMPHOCYTES % (AUTO) 31.2 %; MEAN CORPUSCULAR HEMOGLOBIN 29.7 pg (27.0-31.0); MEAN CORPUSCULAR HGB CONC 32.9 g/dL (32.0-36.0); MEAN CORPUSCULAR VOLUME 90.2 fL (81.0-99.0); MEAN PLATELET VOLUME 11.4 fL (7.9-10.8); MONOCYTES # (AUTO) 0.4 10^3/uL (0.0-1.0); MONOCYTES % (AUTO) 7.9 %; NEUTROPHILS # (AUTO) 3.2 10^3/uL (1.5-6.6); NEUTROPHILS % (AUTO) 57.3 %; PLT - PLATELET COUNT 240 10^3/uL (130-450); RED BLOOD COUNT 4.68 10^6/uL (4.20-5.40); RED CELL DISTRIBUTION WIDTH 13.5 % (12.0-15.0); WHITE BLOOD COUNT 5.6 x10^3/uL (4.8-10.8)
[2020-06-13 10:45] LABS: ALT ALANINE AMINOTRANSFERASE 19 IU/L (10-60); AMYLASE 40 U/L (28-100); AST ASPARTATE AMINOTRANSFERASE 19 IU/L (10-42); GAMMA GLUTAMYL TRANSPEPTIDASE 32 IU/L (8-38); LIPASE 24 U/L (22-51)
[2020-06-13 10:53] LABS: BILIRUBIN,URINE NEGATIVE (NEGATIVE); CLARITY,URINE CLEAR (CLEAR); GLUCOSE, URINE (UA) NEGATIVE (NEGATIVE); KETONES,URINE (UA) NEGATIVE (NEGATIVE); LEUKOCYTE ESTERASE, URINE TRACE (NEGATIVE); NITRITE,URINE NEGATIVE (NEGATIVE); OCCULT BLOOD,URINE NEGATIVE (NEGATIVE); PH,URINE 5.5 PH (5.0-7.5); PROTEIN,URINE NEGATIVE (NEGATIVE); UROBILINOGEN,URINE 0.2 (NORMAL) E.U./dL (NORMAL)
[2020-06-13 11:26] LABS: BACTERIA,URINE Rare /HPF (None Seen); RBC,URINE None Seen /HPF (0-5); SQUAMOUS EPITHELIAL CELL,UR FEW Squamous (<= Few); WBC,URINE 0-3 /HPF (0-5)
== END 2020-06-13 10:06 | disposition home or self-care (01) ==
LOC: LAB 10:05
PROVIDERS: ATTEND Internal Medicine
DX: E53.8 Deficiency of other specified B group vitamins (principal); R19.7 Diarrhea, unspecified; R19.5 Other fecal abnormalities
CPT/HCPCS: 36415; 81001; 81003; 82150; 82977; 83690; 84450; 84460; 85025; 86340

== ENCOUNTER 2020-07-03 07:00 | Outpatient (CLI) | payer MEDICARE, OTHER ==
[2020-07-03 15:36] LABS: BASOPHILS % (AUTO) 0.3 %; EOSINOPHILS # (AUTO) 0.2 10^3/uL (0.0-0.7); EOSINOPHILS % (AUTO) 3.1 %; HCT - HEMATOCRIT 42.7 % (37.0-47.0); HGB - HEMOGLOBIN 14.4 g/dL (12.0-16.0); LYMPHOCYTES % (AUTO) 30.5 %; MEAN CORPUSCULAR HGB CONC 33.7 g/dL (32.0-36.0); MEAN PLATELET VOLUME 11.5 fL (7.9-10.8); MONOCYTES # (AUTO) 0.5 10^3/uL (0.0-1.0); MONOCYTES % (AUTO) 8.1 %; NEUTROPHILS # (AUTO) 3.9 10^3/uL (1.5-6.6); NEUTROPHILS % (AUTO) 57.7 %; PLT - PLATELET COUNT 253 10^3/uL (130-450); RED CELL DISTRIBUTION WIDTH 13.6 % (12.0-15.0); WHITE BLOOD COUNT 6.7 x10^3/uL (4.8-10.8)
[2020-07-03 15:40] LABS: % IRON SATURATION 32 % (20-50); ALBUMIN 4.7 g/dL (3.2-5.5); ALBUMIN/GLOBULIN RATIO 1.6 (1.0-2.2); ALKALINE PHOSPHATASE 65 IU/L (42-121); ALT ALANINE AMINOTRANSFERASE 32 IU/L (10-60); AST ASPARTATE AMINOTRANSFERASE 28 IU/L (10-42); BILIRUBIN,TOTAL 0.3 mg/dL (0.2-1.0); BUN - BLOOD UREA NITROGEN 23 mg/dL (6-20); CARBON DIOXIDE - CO2 25 mmol/L (21-32); CHLORIDE 99 mmol/L (101-111); CHOL/HDL RATIO 3.3 (<4.4); CHOLESTEROL 249 mg/dL; CREATININE 0.8 mg/dL (0.4-1.0); GFR - MDRD 71 (>89); GLUCOSE 112 mg/dL (70-100); HDL CHOLESTEROL 75 mg/dL; IRON 107 ug/dL (28-170); LDL CHOLESTEROL,CALCULATED 143 mg/dL; LDL/HDL RATIO 1.9 (<4.4); POTASSIUM 4.4 mmol/L (3.5-5.0); SODIUM 141 mmol/L (135-145); TOTAL IRON BINDING CAPACITY 336 ug/dL (250-450); TOTAL PROTEIN 7.6 g/dL (6.7-8.2); TRANSFERRIN 240 mg/dL (192-382); TRIGLYCERIDES 154 mg/dL; VLDL CHOLESTEROL 31 mg/dL
[2020-07-03 15:53] LABS: FREE T3 3.46 pg/mL (2.5-3.9); FREE T4 (FREE THYROXINE) 0.65 ng/dL (0.58-1.64)
[2020-07-03 15:58] LABS: FERRITIN 169.6 ng/mL (11.0-306.8)
[2020-07-03 19:58] LABS: ESTIMATED AVERAGE GLUCOSE 123 mg/dL (70-100); HEMOGLOBIN A1c% 5.9 % (4.27-6.07)
== END 2020-07-03 23:59 | disposition home or self-care (01) ==
LOC: LAB 07:00
PROVIDERS: ATTEND Physician Assistant
DX: E03.9 Hypothyroidism, unspecified (principal); K21.00 Gastro-esophageal reflux disease with esophagitis, without bleeding; E53.8 Deficiency of other specified B group vitamins; D64.9 Anemia, unspecified; E78.5 Hyperlipidemia, unspecified; R73.03 Prediabetes; E55.9 Vitamin D deficiency, unspecified
CPT/HCPCS: 36415; 80053; 80061; 82306; 82607; 82728; 83036; 83540; 83721; 84439; 84466; 84480; 84481; 84482; 85025

== ENCOUNTER 2020-08-07 12:31 | Outpatient (CLI) | payer MEDICARE, OTHER ==
[2020-08-07 12:46] LABS: CALCIUM, IONIZED 1.21 mmol/L (1.15-1.33); VBG PH 7.424 (7.31-7.41)
[2020-08-07 12:59] LABS: ALBUMIN 4.4 g/dL (3.2-5.5); ALBUMIN/GLOBULIN RATIO 1.5 (1.0-2.2); BILIRUBIN,TOTAL 0.7 mg/dL (0.2-1.0); CALCIUM 9.9 mg/dL (8.5-10.3); CREATININE 0.7 mg/dL (0.4-1.0); POTASSIUM 4.6 mmol/L (3.5-5.0); TOTAL PROTEIN 7.4 g/dL (6.7-8.2)
[2020-08-07 13:16] LABS: THYROID STIMULATING HORMONE 1.25 uIU/mL (0.34-5.60)
[2020-08-07 13:18] LABS: FREE T4 (FREE THYROXINE) 0.67 ng/dL (0.58-1.64)
== END 2020-08-07 12:32 | disposition home or self-care (01) ==
LOC: LAB 12:31
PROVIDERS: ATTEND Physician Assistant
DX: E83.52 Hypercalcemia (principal); E03.9 Hypothyroidism, unspecified; E53.8 Deficiency of other specified B group vitamins
CPT/HCPCS: 36415; 80053; 82306; 82330; 82607; 83970; 84439; 84443

== ENCOUNTER 2021-07-12 10:07 | Outpatient (CLI) | payer MEDICARE, OTHER ==
[2021-07-12 10:35] LABS: BASOPHILS % (AUTO) 0.5 %; EOSINOPHILS # (AUTO) 0.2 10^3/uL (0.0-0.7); EOSINOPHILS % (AUTO) 3.7 %; HGB - HEMOGLOBIN 13.7 g/dL (12.0-16.0); LYMPHOCYTES # (AUTO) 1.7 10^3/uL (1.5-3.5); LYMPHOCYTES % (AUTO) 26.6 %; MEAN CORPUSCULAR HEMOGLOBIN 29.7 pg (27.0-31.0); MEAN CORPUSCULAR HGB CONC 33.4 g/dL (32.0-36.0); MEAN CORPUSCULAR VOLUME 88.9 fL (81.0-99.0); MEAN PLATELET VOLUME 10.8 fL (7.9-10.8); MONOCYTES # (AUTO) 0.5 10^3/uL (0.0-1.0); MONOCYTES % (AUTO) 8.1 %; NEUTROPHILS % (AUTO) 60.8 %; PLT - PLATELET COUNT 221 10^3/uL (130-450); RED BLOOD COUNT 4.61 10^6/uL (4.20-5.40); RED CELL DISTRIBUTION WIDTH 13.7 % (12.0-15.0); WHITE BLOOD COUNT 6.5 x10^3/uL (4.8-10.8)
[2021-07-12 10:58] LABS: ALBUMIN 4.4 g/dL (3.2-5.5); ALBUMIN/GLOBULIN RATIO 1.4 (1.0-2.2); ALKALINE PHOSPHATASE 62 IU/L (42-121); ALT ALANINE AMINOTRANSFERASE 28 IU/L (10-60); AST ASPARTATE AMINOTRANSFERASE 25 IU/L (10-42); BUN - BLOOD UREA NITROGEN 21 mg/dL (6-20); CALCIUM 9.4 mg/dL (8.5-10.3); CARBON DIOXIDE - CO2 27 mmol/L (21-32); CHLORIDE 103 mmol/L (101-111); CHOL/HDL RATIO 2.9 (<4.4); CHOLESTEROL 226 mg/dL; CREATININE 0.7 mg/dL (0.4-1.0); GFR - MDRD 83 (>89); GLUCOSE 151 mg/dL (70-100); HDL CHOLESTEROL 77 mg/dL; LDL CHOLESTEROL,CALCULATED 137 mg/dL; LDL/HDL RATIO 1.8 (<4.4); POTASSIUM 4.1 mmol/L (3.5-5.0); SODIUM 139 mmol/L (135-145); TOTAL PROTEIN 7.5 g/dL (6.7-8.2); TRIGLYCERIDES 60 mg/dL; VLDL CHOLESTEROL 12 mg/dL
[2021-07-12 11:10] LABS: THYROID STIMULATING HORMONE 1.55 uIU/mL (0.34-5.60)
[2021-07-12 11:12] LABS: FREE T4 (FREE THYROXINE) 0.76 ng/dL (0.58-1.64)
[2021-07-12 11:19] LABS: ESTIMATED AVERAGE GLUCOSE 143 mg/dL (70-100); HEMOGLOBIN A1c% 6.6 % (4.27-6.07)
[2021-07-14 20:16] LABS: HCV RNA QNT <1.18 NOT DETECTED Log IU/mL; HCV RNA QUANT RT PCR <15 NOT DETECTED IU/mL
== END 2021-07-12 10:08 | disposition home or self-care (01) ==
LOC: LAB 10:07
PROVIDERS: ATTEND Physician Assistant
DX: E83.52 Hypercalcemia (principal); E55.9 Vitamin D deficiency, unspecified; E53.8 Deficiency of other specified B group vitamins; E03.9 Hypothyroidism, unspecified; E66.9 Obesity, unspecified; Z11.59 Encounter for screening for other viral diseases; Z13.220 Encounter for screening for lipoid disorders
CPT/HCPCS: 36415; 80053; 80061; 82306; 82607; 83036; 83721; 83970; 84439; 84443; 85025; 87522

== ENCOUNTER 2021-09-24 13:31 | Outpatient (CLI) | payer MEDICARE, OTHER ==
--- NOTE | 2021-09-25 07:55 | Mammography Report ---
BILATERAL DIGITAL SCREENING MAMMOGRAM 3D/2D: 09/24/2021 CLINICAL: Routine screening. Comparison is made to exams dated: 06/22/2018 mammogram, 06/02/2018 mammogram, 03/09/2017 mammogram, an d 11/09/2014 mammogram - [facility]. There are scattered fibroglandular elements in both breasts. No significant masses, calcifications, or other findings are seen in either breast. There has been no significant interval change. IMPRESSION: NEGATIVE There is no mammographic evidence of malignancy. A 1 year screening mammogram is recommended. This exam was interpreted at Station ID: [id number]. NOTE: For mammograms, a report in lay terms will be sent to the patient. Approximately 15% of breast malignancies will not be visualized mammographically. In the management of a palpable breast mass, a negative mammogram must not discourage biopsy of a clinically suspicious lesion. Electronically Signed By: Johnny Eid M.D. ar/penrad:09/24/2021 15:45:20 ACR BI-RADS Category 1: Negative [id number] PARENCHYMAL PATTERN: (A) - The breast(s) demonstrate(s) scattered fibroglandular densities. BI-RADS CATEGORY: (1) - 1 RECOMMENDATION: (ANNUAL) - Recommend routine annual screening mammography. [id number] 1 year screening LATERALITY: (B)
== END 2021-09-24 13:32 | disposition home or self-care (01) ==
LOC: DI.N 13:31
DX: Z12.31 Encounter for screening mammogram for malignant neoplasm of breast (principal)

== ENCOUNTER 2022-07-09 13:23 | Emergency (ER) | payer MEDICARE, OTHER ==
[2022-07-09] MEDS ORDERED: SODIUM CHLORIDE 0.9% 1,000 ML IV STA (14:14)
[2022-07-09] MEDS ORDERED: ONDANSETRON 4 MG/2 ML VIAL IVP STA (14:14)
[2022-07-09] MEDS ORDERED: MECLIZINE 12.5 MG TABLET PO STA (14:15)
[2022-07-09 14:32] LABS: BASOPHILS % (AUTO) 0.5 %; EOSINOPHILS # (AUTO) 0.2 10^3/uL (0.0-0.7); EOSINOPHILS % (AUTO) 2.2 %; HCT - HEMATOCRIT 43.1 % (37.0-47.0); HGB - HEMOGLOBIN 14.5 g/dL (12.0-16.0); LYMPHOCYTES # (AUTO) 1.4 10^3/uL (1.5-3.5); LYMPHOCYTES % (AUTO) 19.5 %; MEAN CORPUSCULAR HEMOGLOBIN 29.8 pg (27.0-31.0); MEAN CORPUSCULAR HGB CONC 33.6 g/dL (32.0-36.0); MEAN CORPUSCULAR VOLUME 88.7 fL (81.0-99.0); MONOCYTES # (AUTO) 0.6 10^3/uL (0.0-1.0); MONOCYTES % (AUTO) 7.9 %; NEUTROPHILS # (AUTO) 5.1 10^3/uL (1.5-6.6); NEUTROPHILS % (AUTO) 69.8 %; PLT - PLATELET COUNT 222 10^3/uL (130-450); RED BLOOD COUNT 4.86 10^6/uL (4.20-5.40); RED CELL DISTRIBUTION WIDTH 13.1 % (12.0-15.0); WHITE BLOOD COUNT 7.4 x10^3/uL (4.8-10.8)
--- NOTE | 2022-07-09 14:42 | ED Physician Documentation ---
History of Present Illness - Stated complaint Stated Complaint: DIZZINESS - Chief complaint Chief Complaint: General - History obtained from History obtained from: Patient - Additonal information Additional information: Pt is a 71-year-old female with a history of vertigo presenting for evaluation of dizziness that has been ongoing since she woke up this morning. Patient reports having vertigo since Thursday but she was able to control her symptoms with OTC dramamine (That she believes has meclizine in it)And doing the Josefa maneuver. However since this morning her dizziness has not improved.She has been using saline rinses of the nose which has not helped loosen up congestion. She has also tried [id number] Mucinex this morning. She denies using Sudafed. She reports having a fullness sensation to her head and a lot of sinus congestion over the past 1 week. He tried a dose of meclizine this morning around 830. She reports associated nausea. She went to the walk-in clinic where they noted that her blood pressure was quite elevated.She denies a history of hypertension. She reports having a similar episode last year where she went to [facility] and a CT head was done. She was placed on antibiotics for her sinuses and her symptoms improved.She reports usually having high blood pressure when she goes to the doctor's office but it is never been this high. She denies visual disturbances, tinnitus, chest pain, difficulty breathing, palpitations, focal weakness. Review of Systems Constitutional: denies: Fever Nose: reports: Congestion Cardiac: denies: Chest pain / pressure Respiratory: denies: Dyspnea GI: reports: Nausea. 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, Other - Present Medications Home Medications: Ambulatory Orders Medication Instructions Recorded Confirmed Acyclovir [Zovirax] 400 mg PO BID 03/26/20 04/12/20 Levothyroxine [Synthroid] 25 mcg PO DAILY 03/26/20 04/12/20 Metformin HCl [Metformin ER 500 mg PO DAILY 03/26/20 04/12/20 Gastric] C,E,Zinc,Copper 11/Jnqdc6i/Lut 1 each PO DAILY 04/12/20 04/12/20 [Ocuvite Adult 50 Plus Softgel] Calcium Carbonate [Elemental 600 mg PO DAILY 04/12/20 04/12/20 Calcium] Cholecalciferol [Vitamin D3] 10,000 unit PO DAILY 04/12/20 04/12/20 Chromium Picolinate 1,000 mcg PO DAILY 04/12/20 04/12/20 Cinnamon 1,200 mg PO DAILY 04/12/20 Cyanocobalamin [Vitamin B-12] 1,000 mcg IM ONCE 04/12/20 04/12/20 Diclofenac Sodium [Arthritis Pain] 1 applic TP PRN PRN 04/12/20 04/12/20 Doxylamine Succinate [Unisom] 25 mg PO QPM PRN 04/12/20 04/12/20 Ibuprofen [Advil] 400 - 600 mg PO Q6HR PRN 04/12/20 04/12/20 Lactobacill 46/B.animal/Inulin 4 cap PO DAILY 04/12/20 04/12/20 [Probiotic-10 10 Bill Cell Cap] Liothyronine [Cytomel] 5 mcg PO BID 04/12/20 04/12/20 Loratadine [Claritin] 10 mg PO DAILY PRN 04/12/20 04/12/20 Magnesium Oxide [Magnesium] 400 mg PO DAILY 04/12/20 04/12/20 Sumner-3 Fatty Acids/Fish Oil 2,000 mg PO DAILY 04/12/20 04/12/20 [Sumner-3 Fish Oil 1,000 mg Sfgl] Pantoprazole [Protonix] 40 mg PO DAILY 04/12/20 04/12/20 Phytonadione (Vit K1) [Vitamin K] 550 mcg PO DAILY 04/12/20 04/12/20 Potassium Citrate [Potassium 99 mg PO DAILY 04/12/20 04/12/20 Citrate ER] Pseudoephedrine HCl [Sudafed] 30 mg PO PRN PRN 04/12/20 04/12/20 Psyllium Husk [Fiber] 1 cap PO DAILY 04/12/20 04/12/20 Selenium 200 mcg PO DAILY 04/12/20 04/12/20 Turmeric Root Extract [Turmeric] 1,500 mg PO DAILY 04/12/20 04/12/20 guaiFENesin [Mucinex] 600 mg PO DAILY PRN 04/12/20 04/12/20 Ondansetron Odt [Zofran Odt] 4 mg PO Q6H PRN #14 tablet 04/16/20 Ondansetron Odt [Zofran Odt] 4 mg TL Q6H PRN #14 tablet 04/16/20 oxyCODONE [Roxicodone] 5 mg PO Q4-6H PRN #14 tablet 04/16/20 oxyCODONE [Roxicodone] 5 mg PO Q4-6H PRN #14 tablet 04/16/20 Amox/Clav 875/125 [Augmentin] 1 each PO Q12H #20 tablet 07/09/22 Meclizine HCl [Motion Sickness] 25 mg PO Q6H PRN #20 tablet 07/09/22 Ondansetron Odt [Zofran] 4 mg TL Q6H PRN #10 tablet 07/09/22 - Allergies Allergies/Adverse Reactions: Allergies Allergy/AdvReac Type Severity Reaction Status Date / Time Sulfa (Sulfonamide AdvReac Nausea Verified 07/09/22 13:36 Antibiotics) - Social History Does the pt smoke?: No Smoking Status: Never smoker Does the pt drink ETOH?: No Does the pt have substance abuse?: No - Immunizations Immunizations are current?: Yes - POLST Patient has POLST: No PD ED PE NORMAL - General General: Alert and oriented X 3, No acute distress, Well developed/nourished - HEENT HEENT: Atraumatic, PERRL, EOMI, Moist mucous membranes, Pharynx benign - Neck Neck: Supple, no meningeal sign, No bony TTP - Cardiac Cardiac: RRR - Respiratory Respiratory: No respiratory distress, Clear bilaterally - Abdomen Abdomen: Soft, Non tender, Non distended - Derm Derm: Warm and dry - Neuro Neuro: Alert and oriented X 3, 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 Relevant findings are: Rate 80, normal sinus rhythm, no STEMI, QTc 430 Rate: Rate (enter#) (80) Rhythm: NSR Intervals: No: Prolonged QT Ischemia: No: ST elevation c/w ischemia - Labs Labs: Laboratory Tests 07/09/22 07/09/22 14:26 15:02 WBC 7.4 RBC 4.86 Hgb 14.5 Hct 43.1 MCV 88.7 MCH 29.8 MCHC 33.6 RDW 13.1 Plt Count 222 MPV 11.0 H Neut # (Auto) 5.1 Lymph # (Auto) 1.4 L [place] # (Auto) 0.6 Eos # (Auto) 0.2 Baso # (Auto) 0.0 Absolute Nucleated RBC 0.00 Nucleated RBC % 0.0 Sodium 136 Potassium 4.0 Chloride 103 Carbon Dioxide 26 Anion Gap 7.0 BUN 20 Creatinine 0.8 Estimated GFR (MDRD) 71 L Glucose 119 H Calcium 9.5 Total Bilirubin 0.7 AST 33 ALT 47 Alkaline Phosphatase 71 Total Protein 7.5 Albumin 4.3 Globulin 3.2 Albumin/Globulin Ratio 1.3 Lipase 70 H PD Medical Decision Making - ED course Complexity details: reviewed results, re-evaluated patient ED course: Pt is a 71 yo F with history of vertigo presenting with dizziness, headache and noted to have elevated BP. Due to BP and headache, a CT was obtained to rule out ICH. CT head reviewed and is negative for bleed. EKG is NSR and CBC and Chemistries reviewed without significant findings. Pt given IV fluids, meclizine and zofran here with improvement and she has been ambulating to the bathroom. No other symptoms to suggest stroke. She has been having sinus symptoms for at least a week and reports this is the dizziness she has when she has sinus infections. Discussed treatment options with pt and given duration will treat with antibiotics. Pt's BP has improved without BP lowering meds. Pt counseled on need for close follow up with PCP and advised on strict return precautions. Departure - Departure Disposition: 01 Home, Self Care Clinical Impression: Sinusitis, Dizziness, Elevated blood pressure reading Condition: Stable Instructions: ED Hypertension Poss, ED Sinusitis Abx Tx, ED Vertigo Unspecified Prescriptions: Amox/Clav 875/125 [Augmentin] 1 each PO Q12H #20 tablet Meclizine HCl [Motion Sickness] 25 mg PO Q6H PRN #20 tablet PRN Reason: Dizziness Ondansetron Odt [Zofran] 4 mg TL Q6H PRN #10 tablet PRN Reason: Nausea / Vomiting Comments: Your evaluated for dizziness which I believe is related to a sinus infection. I am starting you on an antibiotic called Augmentin and [facility] this prescription to [facility] in [place].I have also sent a prescription for antinausea medications and meclizine also to [facility]. Your head CT did not show any significant abnormalities and your labs are reassuring. Your initial blood pressure readings were quite elevated but they have improved with medication for your dizziness. I would recommend close follow-up with your primary care to make sure that your blood pressure is not so elevated requiring medication. Please return to the ER with any worsening symptoms. Discharge Date/Time: 07/09/22 16:53
[2022-07-09 15:22] LABS: ALBUMIN 4.3 g/dL (3.2-5.5); ALBUMIN/GLOBULIN RATIO 1.3 (1.0-2.2); BILIRUBIN,TOTAL 0.7 mg/dL (0.2-1.0); CALCIUM 9.5 mg/dL (8.5-10.3); CREATININE 0.8 mg/dL (0.4-1.0); TOTAL PROTEIN 7.5 g/dL (6.7-8.2)
--- NOTE | 2022-07-09 15:50 | CT Report ---
PROCEDURE: CT brain without contrast INDICATIONS: headache/HTN TECHNIQUE: Noncontrast 4.5 mm thick angled axial sections acquired from the foramen magnum to the vertex. For r adiation dose reduction, the following was used: automated exposure control, adjustment of mA and/or kV according to patient size. COMPARISON: None. FINDINGS: Image quality: Excellent. CSF spaces: Basal cisterns are patent. No extra-axial fluid collections. Ventricles are normal in size and shape. Brain: No midline shift. No intracranial masses or hemorrhage. Hooper-white matter interface is norm al. Skull and face: Calvarium and visualized facial bones are intact, without suspicious lesions. Sinuses: Visualized sinuses and mastoids are clear other than small retention cyst in the posterior left ethmoid sinus. IMPRESSION: No intracranial hemorrhage or mass effect Left ethmoid sinus retention cyst Reviewed by: Albert Banegas MD on 07/09/2022 2:49 PM AKDT Approved by: Albert Banegas MD on 07/09/2022 2:49 PM AKDT Station ID: [id number]
[2022-07-09] MEDS ORDERED: AMOX/CLAV 875 MG/125 MG TABLET PO STA (16:32)
[2022-07-09 16:55] VITALS: BP 160/80
== END 2022-07-09 16:53 | disposition home or self-care (01) ==
LOC: ED 13:23
DX: J32.9 Chronic sinusitis, unspecified (principal); R42 Dizziness and giddiness; I10 Essential (primary) hypertension; E11.9 Type 2 diabetes mellitus without complications; E03.9 Hypothyroidism, unspecified; Z79.899 Other long term (current) drug therapy; Z79.84 Long term (current) use of oral hypoglycemic drugs
CPT/HCPCS: 36415; 70450; 80053; 83690; 85025; 93005; 96374; 99284; A9270

== ENCOUNTER 2022-07-23 17:53 | Outpatient (CLI) | payer MEDICARE, OTHER ==
--- NOTE | 2022-07-24 14:19 | XRAY Report ---
PROCEDURE: Chest 2 View X-Ray INDICATIONS: ACUTE COUGH TECHNIQUE: 2 views of the chest were acquired. COMPARISON: None. FINDINGS: Surgical changes and devices: Cholecystectomy clips.. Lungs and pleura: No pleural effusions or pneumothorax. Lungs are clear. Mediastinum: Mediastinal contours appear normal. Heart size is mildly prominent. Bones and chest wall: No suspicious bony lesions. Overlying soft tissues appear unremarkable. IMPRESSION: No acute pulmonary process. Reviewed by: Susana Lee MD on 07/24/2022 2:18 PM PDT Approved by: Susana Lee MD on 07/24/2022 2:18 PM PDT Station ID: [id number]
== END 2022-07-23 17:54 | disposition home or self-care (01) ==
LOC: DI 17:53
PROVIDERS: ATTEND Registered Nurse
DX: R05.1 Acute cough (principal)

== ENCOUNTER 2022-08-06 09:43 | Outpatient (CLI) | payer MEDICARE, OTHER ==
[2022-08-06 10:08] LABS: BASOPHILS % (AUTO) 0.4 %; EOSINOPHILS # (AUTO) 0.3 10^3/uL (0.0-0.7); EOSINOPHILS % (AUTO) 4.3 %; HCT - HEMATOCRIT 43.1 % (37.0-47.0); HGB - HEMOGLOBIN 14.3 g/dL (12.0-16.0); LYMPHOCYTES # (AUTO) 1.7 10^3/uL (1.5-3.5); LYMPHOCYTES % (AUTO) 23.9 %; MEAN CORPUSCULAR HEMOGLOBIN 29.2 pg (27.0-31.0); MEAN CORPUSCULAR HGB CONC 33.2 g/dL (32.0-36.0); MEAN PLATELET VOLUME 11.2 fL (7.9-10.8); MONOCYTES # (AUTO) 0.6 10^3/uL (0.0-1.0); MONOCYTES % (AUTO) 8.2 %; NEUTROPHILS # (AUTO) 4.5 10^3/uL (1.5-6.6); NEUTROPHILS % (AUTO) 62.9 %; PLT - PLATELET COUNT 243 10^3/uL (130-450); RED CELL DISTRIBUTION WIDTH 13.4 % (12.0-15.0); WHITE BLOOD COUNT 7.2 x10^3/uL (4.8-10.8)
[2022-08-06 10:26] LABS: CREATININE,URINE 162.7 mg/dL; MICROALBUM/CREATININE RATIO,UR 12.9 ug/mg (<30.0); MICROALBUMIN,URINE 2.1 mg/dL (0-300.0)
[2022-08-06 10:27] LABS: ALBUMIN 4.2 g/dL (3.2-5.5); ALBUMIN/GLOBULIN RATIO 1.3 (1.0-2.2); ALKALINE PHOSPHATASE 63 IU/L (42-121); ALT ALANINE AMINOTRANSFERASE 41 IU/L (10-60); AST ASPARTATE AMINOTRANSFERASE 28 IU/L (10-42); BILIRUBIN,TOTAL 0.7 mg/dL (0.2-1.0); BUN - BLOOD UREA NITROGEN 20 mg/dL (6-20); CARBON DIOXIDE - CO2 25 mmol/L (21-32); CHLORIDE 104 mmol/L (101-111); CHOL/HDL RATIO 3.1 (<4.4); CHOLESTEROL 221 mg/dL; CREATININE 0.8 mg/dL (0.4-1.0); GFR - MDRD 71 (>89); GLUCOSE 150 mg/dL (70-100); HDL CHOLESTEROL 71 mg/dL; LDL CHOLESTEROL,CALCULATED 131 mg/dL; LDL/HDL RATIO 1.8 (<4.4); POTASSIUM 4.1 mmol/L (3.5-5.0); SODIUM 138 mmol/L (135-145); TOTAL PROTEIN 7.4 g/dL (6.7-8.2); TRIGLYCERIDES 97 mg/dL; VLDL CHOLESTEROL 19 mg/dL
[2022-08-06 10:39] LABS: THYROID STIMULATING HORMONE 2.05 uIU/mL (0.34-5.60)
[2022-08-06 12:46] LABS: ESTIMATED AVERAGE GLUCOSE 151 mg/dL (70-100); HEMOGLOBIN A1c% 6.9 % (4.27-6.07)
== END 2022-08-06 09:44 | disposition home or self-care (01) ==
LOC: LAB 09:43
PROVIDERS: ATTEND Physician Assistant
DX: E53.8 Deficiency of other specified B group vitamins (principal); E03.9 Hypothyroidism, unspecified; R73.03 Prediabetes; E78.5 Hyperlipidemia, unspecified; E55.9 Vitamin D deficiency, unspecified
CPT/HCPCS: 36415; 80053; 80061; 82043; 82306; 82570; 82607; 83036; 83721; 84443; 85025

== ENCOUNTER 2022-10-31 12:38 | Outpatient (CLI) | payer MEDICARE, OTHER ==
[2022-10-31 13:40] LABS: ESTIMATED AVERAGE GLUCOSE 120 mg/dL (70-100); HEMOGLOBIN A1c% 5.8 % (4.27-6.07)
== END 2022-10-31 12:39 | disposition home or self-care (01) ==
LOC: LAB 12:38
PROVIDERS: ATTEND Physician Assistant
DX: E11.9 Type 2 diabetes mellitus without complications (principal)
CPT/HCPCS: 36415; 83036

== ENCOUNTER 2023-04-09 12:59 | Outpatient (CLI) | payer MEDICARE, OTHER ==
[2023-04-09 20:36] LABS: ESTIMATED AVERAGE GLUCOSE 128 mg/dL (70-100); HEMOGLOBIN A1c% 6.1 % (4.27-6.07)
== END 2023-04-09 13:00 | disposition home or self-care (01) ==
LOC: LAB 12:59
PROVIDERS: ATTEND Physician Assistant
DX: E11.9 Type 2 diabetes mellitus without complications (principal)
CPT/HCPCS: 36415; 83036

== ENCOUNTER 2023-08-18 15:14 | Outpatient (CLI) | payer MEDICARE, OTHER ==
--- NOTE | 2023-08-18 15:53 | Sleep Patient Instructions ---
Sleep Center Visit Summary - Patient Visit Information Reason for Visit: Initial consult for evaluation of sleep disordered breathing and other sleep issues. - Patient Instructions Instructions Attached: Sleep Study Additional Instructions: You will be completing a sleep study, either an in-lab polysomnography (PSG) or home sleep study (HST). You will follow-up in the sleep care office after the sleep study is completed to hear the results and talk about therapy, if needed. You will be called by our office staff to schedule this appointment, but you may contact us with any questions. - Clinic Information Contact: [facility] [address] [place] [address] [email or web address] T: [phone]
--- NOTE | 2023-08-18 16:01 | SLEEP CARE CONSULTATION ---
Information from patient questionnaire entered by Nereyda Lentz. I have reviewed and concur with the information entered by Nereyda Lentz. This document represents the service I personally performed and the decisions made by me, Fabby Arreguin ARNP. History of Present Illness Service Date and Time: 08/18/2023 1514 Reason for Visit: New patient Chief Complaint: reports: Insomnia, Unrefreshed sleep, Excessive daytime sleepiness, Fatigue Date of Onset: OFF AND ON SINCE MID 20S Usual bedtime: 1006-5949 Time it takes to fall asleep: 30MINS with Unisom Snores at night: Yes Observed to quit breathing while asleep: No Sleeps alone due to snoring: No Number of times waking at night: 2 Reasons for waking at night: reports: Bathroom, Other (UNKNOWN). denies: Choking, Gasping for air Toss, Turn, or Twitch while sleeping: Yes Recalls having dreams: Yes Usually gets out of bed at: 0830 Feels refreshed in the morning: No Morning headache: Yes (sometimes; 1-2 times a week, may be due to allergies this time of year) Sleepy or fatigued during the day: Yes Ever fallen asleep while driving: No Takes day naps: No Prior sleep studies: No Additional HPI information: I had the pleasure of seeing JAIRO BROWN today regarding the possibility of her having a sleep disorder. Her current complaints are insomnia, unrefreshed sleep, excessive daytime sleepiness and fatigue. She has been having problems with daytime fatigue and sleepiness. She is on thyroid medications. She knows she snores but it is not all the time. No one has told her she stopped breathing. She says she has had insomnia for a long time. She has tried Ambien but started sleep walking. Trazodone gave her nightmares. She is taking over the counter Unisom and it is helping her to go to sleep. She wears a Fitbit which sometimes tells her there are "things" going on at night that she might need checked. 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 Patient is and lives in [place]. Have you smoked in the past 12 months: No Alcohol use: Yes Alcohol amount and frequency: .5 GLASS WINE 2-3 X MONTH Caffeine use: Yes Caffeine amount and frequency: 2 MUGS IN MORNING Family History Family history of sleep disordered breathing: No Family Hx Sleep Apnea: Sibling: Snoring Allergies and Home Medications Known drug allergies: Yes (SULPHA BASED MEDICATION MAKES ME SICKS TO STOMACH) Drug allergies reviewed: Yes Home medication list reviewed: Yes (as listed) Allergy and home medication list: Allergies Sulfa (Sulfonamide Antibiotics) Adverse Reaction (Verified 08/14/23 14:10) Nausea Medications: Acyclovir 400 mg twice a day Liothyronine 5 mcg twice a day Levothyroxine 0.25 mg, 5 tabs each week Pantoprazole 40 mg prn Diclofenac Sodium topical Gel 1%, prn Ocuvite eye multivitamin Vitamin K Probiotic Vitamin D3 Turmeric Curcumin [place] Cinnamon Chromium Picolinate Potassium Citrate Waucoma 3 fish oil Magnesium Qunol Chencho Ubiquinol CoQ10 Loratadine, prn Sudafed, prn Unisom, prn insomnia Advil, prn Muscinex-12 hr, prn Review of Systems Weight gain over past 5 years: 15 Cardiovascular: denies: high blood pressure Gastrointestinal: reports: heartburn, diarrhea Urinary: reports: incontinence Neurological: reports: headaches Psychiatric: reports: claustrophobia Ear/Nose/Throat: reports: nasal congestion, sinus problems. denies: tonsillectomy Endocrine: reports: thyroid disease, sluggishness Musculoskeletal: reports: joint pain, neck pain, back pain, joint swelling Immunologic: reports: allergies to food or environment Physical Exam Vital signs obtained and entered by: FABBY MACKEY Blood Pressure: 162/77 (higher pressure at office visits) Cuff size: wrist (right) Heart Rate: 81 O2 Saturation: 98 Height: 5 ft 4 in Weight: 229 lb 3.2 oz Body Mass Index: 39.3 BMI Classification: Obese Neck circumference: 17 (inches) Nostrils: patent to airflow Mouth and throat: narrow oropharynx Soft palate: long Hard palate: normal Uvula: normal Uvula visualization: 25% Mallampati Class III Tongue: normal in size Tonsils: 1+ Neck: normal w/o lymphadenopathy or thyromegaly Heart: regular rate and rhythm Lungs: clear bilaterally Impression and Plan 1. Suspected Obstructive Sleep Apnea-Hypopnea Syndrome, as suggested by a history of irregular snoring, unrefreshed sleep and insomnia. Narrow oropharynx and obesity are common predisposing factors for obstructive sleep apnea-hypopnea syndrome. I recommend proceeding to polysomnography to confirm the diagnosis and to assess severity. If the patient has significant sleep disordered breathing, a manual CPAP titration study will also be performed to find the optimal treatment pressure. I informed the patient of what the sleep studies involve and after some discussion, obtained agreement to proceed. The pathophysiology of obstructive sleep apnea-hypopnea syndrome was discussed with the patient and health risks of cardiovascular and cerebrovascular disease if not treated. Risks of drowsy driving discussed in detail and patient advised to avoid long distance driving and to caul puller at the first sign of drowsiness. Patient agreed to plan. * Schedule polysomnography * Avoid long distance driving or driving when feeling sleepy. * Avoid alcohol, sedative and muscle relaxant around bedtime. * Attempt to lose weight. * Review instructions provided by trained office staff on how to prepare for the sleep study. * Return for follow-up after sleep study completed. Counseling Topics: Weight loss health impact Plan: PSG and follow up Visit Type: In Office Time Spent with Patient (minutes): 37 Provider Statement: I spent 100% of the Face to Face Visit with the patient with greater than 50% spent counseling the patient and coordination of care.
[2023-08-18 16:09] VITALS: BP 162/77; O2SAT 98
== END 2023-08-18 15:15 | disposition home or self-care (01) ==
LOC: SC 15:14
PROVIDERS: ATTEND Nurse Practitioner Family
DX: G47.10 Hypersomnia, unspecified (principal); R53.83 Other fatigue; G47.00 Insomnia, unspecified; R06.83 Snoring; G47.8 Other sleep disorders; E66.9 Obesity, unspecified; Z68.39 Body mass index [BMI] 39.0-39.9, adult
CPT/HCPCS: 99203; G0463; 99212

== ENCOUNTER 2023-09-17 20:47 | Outpatient (CLI) | payer MEDICARE, OTHER | END 2023-09-17 20:48 | disposition home or self-care (01) | LOC: SC 20:47 | PROVIDERS: ATTEND Nurse Practitioner Family | DX: G47.33 Obstructive sleep apnea (adult) (pediatric) (principal); G47.61 Periodic limb movement disorder; E66.9 Obesity, unspecified; Z68.39 Body mass index [BMI] 39.0-39.9, adult | CPT/HCPCS: 95810 ==

== ENCOUNTER 2023-10-20 13:24 | Outpatient (CLI) | payer MEDICARE, OTHER ==
--- NOTE | 2023-10-20 14:02 | Sleep Patient Instructions ---
Sleep Center Visit Summary - Patient Visit Information Reason for Visit: Sleep study follow-up - Patient Instructions Additional Instructions: You are being started on CPAP therapy. You will be completing a titration sleep study in our sleep lab where you will be sleeping with the CPAP machine on and we will be adjusting your pressures to find your optimal pressure settings. Once we have your results back, we will call you and schedule a follow up to go over the results, you may contact us with any questions or issues as needed. - Clinic Information Contact: [facility] [address] [place] [id number] [email or web address] T: [phone]
--- NOTE | 2023-10-20 14:04 | SLEEP CARE CONSULTATION ---
Information from patient questionnaire entered by Nereyda Lentz. I have reviewed and concur with the information entered by Nereyda Lentz. This document represents the service I personally performed and the decisions made by , Fabby Arreguin ARNP. History of Present Illness Service Date and Time: 10/20/2023 1324 Initial [place] Sleepiness Scale score: 1 (08/18/23) Current [place] Sleepiness Scale score: 0 Additional HPI information: JAIRO BROWN returns for follow up and results of the recently performed polysomnography. The sleep study done on 09/17/2023 showed mild obstructive sleep apnea with an average AHI of 7.8 and dane oxygen saturation of 86%. Her study also showed moderate PLMs not contributing to sleep fragmentation. I explained the pathophysiology behind obstructive sleep apnea. We then spent quite a bit of time discussing different treatment options. For mild obstructive sleep apnea, surgery and oral appliance are alternatives to nasal CPAP therapy but in moderate or severe cases, nasal CPAP is the most effective and reliable treatment. I reviewed the impact of weight changes on sleep apnea and strongly recommended losing weight. After some discussion, the patient opted to go with the nasal CPAP therapy. A manual titration study will be ordered to find optimal pressure. I explained how CPAP machine works and what to expect when using the machine. Sleep Study - Results Type of Sleep Study: Polysomnography (COMPLETED 09/17/23 MILD) Prior sleep studies: No Polysomnography/Home Sleep Study results: IMPRESSION: The quality of the study is good. The patient had reduced sleep efficiency due to several prolonged awakenings during the night. The sleep architecture was abnormal for sleep fragmentation and reduced amount of time spent in REM sleep. Respiratory monitoring showed mild obstructive sleep apnea-hypopnea (AHI = 7.8) associated with frequent arousals, oxyhemoglobin desaturation and mild hypoxia (dane oxygen saturation of 86%). The respiratory events occurred almost exclusively during REM sleep (supine AHI = 2.5; non-supine = 9.05). Snore was very loud in intensity. There was moderate periodic leg movement of sleep not contributing to the sleep fragmentation. Cardiac rhythm was normal sinus rhythm without significant arrhythmia. No abnormal behavior (parasomnia) observed during the night. Allergies and Home Medications Known drug allergies: Yes (as listed) Drug allergies reviewed: Yes Home medication list reviewed: Yes (no changes) Allergy and home medication list: Allergies Sulfa (Sulfonamide Antibiotics) Adverse Reaction (Verified 10/16/23 14:31) Nausea Review of Systems Review of systems same as previous: Yes (no changes) Physical Exam Vital signs obtained and entered by: FABBY MACKEY Blood Pressure: 169/84 (has white coat; home 130s/) Cuff size: wrist (right) Heart Rate: 78 O2 Saturation: 97 Height: 5 ft 4 in Weight: 230 lb 3.2 oz Body Mass Index: 39.5 BMI Classification: Obese Impression and Plan 1. Obstructive Sleep Apnea-Hypopnea Syndrome, mild, with lowest oxygen saturation of 7.8. Obviously this is the cause of the patients symptoms of unrefreshed sleep, and excessive daytime sleepiness. Positive pressure therapy could benefit insulin resistance. As mentioned above, the patient will be started on nasal autoCPAP therapy. A manual titration study will be completed to find optimal treatment pressure. Compliance guidelines also reviewed. A copy of compliance guidelines will be given for reference at check out. 2. Periodic limb movement, moderate, that did not fragment patients sleep. Periodic limb movement of sleep (PLMS) is characterized by episodes of repetitive limb movements that occur during sleep and usually involve the lower limbs. The etiology is unknown. Patient was advised that no treatment is needed at this time. If symptoms increase, then further evaluation is indicated. 3. Obesity, unspecified. Currently patients BMI is 38.5. Obesity increases the risk of apnea, CPAP pressure requirements and overall health risks especially cardiovascular and diabetes. Thus patient is advised to lose weight. * Titration study * Attempt to lose weight. * Avoid alcohol consumption near bedtime. * Avoid non-supine sleep until using CPAP. * The patient is again cautioned about driving until sleepiness completely resolves. * Return after titration study for results and to set up CPAP therapy. Counseling Topics: Sleeping position, Weight loss health impact Plan: Titration study and follow up Visit Type: In Office Time Spent with Patient (minutes): 23 Provider Statement: I spent 100% of the Face to Face Visit with the patient with greater than 50% spent counseling the patient and coordination of care.
[2023-10-20 14:11] VITALS: BP 169/84; O2SAT 97
== END 2023-10-20 13:25 | disposition home or self-care (01) ==
LOC: SC 13:24
PROVIDERS: ATTEND Nurse Practitioner Family
DX: G47.33 Obstructive sleep apnea (adult) (pediatric) (principal); G47.61 Periodic limb movement disorder; E66.9 Obesity, unspecified; Z68.39 Body mass index [BMI] 39.0-39.9, adult
CPT/HCPCS: 99213; G0463; 99212

== ENCOUNTER 2023-11-22 20:54 | Outpatient (CLI) | payer MEDICARE, OTHER | END 2023-11-22 20:55 | disposition home or self-care (01) | LOC: SC 20:54 | PROVIDERS: ATTEND Nurse Practitioner Family | DX: G47.33 Obstructive sleep apnea (adult) (pediatric) (principal); G47.61 Periodic limb movement disorder | CPT/HCPCS: 95811 ==

== ENCOUNTER 2023-12-03 10:52 | Outpatient (CLI) | payer MEDICARE, OTHER ==
--- NOTE | 2023-12-03 11:30 | Sleep Patient Instructions ---
Sleep Center Visit Summary - Patient Visit Information Reason for Visit: Titration study follow-up - Patient Instructions Additional Instructions: You are being seen after titration study to initiate therapy. You are being started on CPAP therapy with pressure setting at 5-10 cmH2O. You will need to call the sleep care office to set up your follow up once you have your CPAP machine to check compliance and response to therapy at that time. You may call the office with any concerns about pressure feeling too low or too much for adjustment, if needed. You should contact DME supplier for any questions or concerns about mask or equipment. Please call office to schedule a follow up appointment in the sleep care office one month after obtaining new device. - Clinic Information Contact: [facility] [address] [place] [address] [email or web address] T: [phone]
--- NOTE | 2023-12-03 11:37 | SLEEP CARE CONSULTATION ---
Information from patient questionnaire entered by Betsy Ross. I have reviewed and concur with the information entered by Betsy Ross. This document represents the service I personally performed and the decisions made by , Fabby Arreguin ARNP. History of Present Illness Service Date and Time: 12/03/2023 1052 Previous diagnosis: Mild, Obstructive Sleep Apnea-Hypopnea Syndrome AHI: 7.8 (09/17/23) Reason for follow up: other (F/U titration) Prior sleep studies: No Type of Sleep Study: Polysomnography (11/22/23 Titration, PSG 09/17/23 MILD) HPI additional information: JAIRO BROWN returns for follow up of a manual CPAP titration study performed on 11/22/23. Previous study done on 09/17/23 showed mild obstructive sleep apnea with AHI 7.8. The patient was informed of the following polysomnography findings: CPAP was initiated at 6 cmH2O and titrated up to CPAP at 11 cmH2O. CPAP at 8 cmH2O appeared to be optimal (AHI of 1.8 per hour on the pressure). There was REM sleep on the pressure. The patient did not sleep supine during this study. Oxygen saturation was normal throughout the night. Lower CPAP settings appeared adequate as well. The patient tolerated positive airway pressure therapy fairly well. She had mild periodic leg movement of sleep during night of study. I explained how CPAP machine works and what to expect when using the machine. Using CPAP every night in order to get used to it was emphasized. Patient advised to put CPAP mask on before getting into bed so as not to fall asleep without CPAP. To assist acclimation to CPAP use, it could also be used for a short time during day while reading or watching TV. The patient was instructed to call the CPAP supplier to discuss any mechanical problem that may occur. If the mask given is uncomfortable or is difficult to keep on through the night even with adjustment, contact the CPAP supplier as many will replace with another mask style if notified before 30 days. If snoring or perceives is not getting enough air or too much air from the machine, notify this office. [Patient counseled not drink alcohol less than 4 hours before bedtime as it can increase snoring and apnea. ][Patient does not drink alcohol. ] Patient was cautioned about risks of drowsy driving until sleepiness symptoms resolve. [Patient denies drowsy driving. ][[facility] patient education on snoring and sleep apnea given and reviewed.] Sleep Study - Results Type of Sleep Study: Polysomnography (COMPLETED 09/17/23 MILD) Prior sleep studies: No Polysomnography/Home Sleep Study results: IMPRESSION: The quality of the study is good. CPAP was initiated at 6 cmH2O and titrated up to CPAP at 11 cmH2O. CPAP at 8 cmH2O appeared to be optimal (AHI of 1.8 per hour on the pressure). There was REM sleep on the pressure. The patient did not sleep supine during this study. Oxygen saturat ion was normal throughout the night. Lower CPAP settings appeared adequate as well. The patient tolerated positive airway pressure therapy fairly well. The patients sleep efficiency was reduced as the patient was awake almost throughout the first half of the night.. The sleep architecture was abnormal for mild sleep fragmentation and reduced amount of time spent in slow wave sleep (N3). There was mild periodic leg movement of sleep, not contributing to the sleep fragmentation. Cardiac rhythm was normal sinus rhythm without significant arrhythmia. No abnormal behavior (parasomnia) observed during the night. CONCLUSIONS and RECOMMENDATIONS: 1. Obstructive sleep apnea-hypopnea (ICD-10 G47.33), mild (AHI was 7.8), adequately controlled with CPAP at 8 cmH2O. CPAP therapy is, therefore, recommended at the pressure setting. AutoCPAP set between 5 and 10 cmH20 is also appropriate. Mask used was a full face mask. With BMI of 39.5 Kg/M2 , weight loss is also recommended. 2. Periodic leg movement of sleep (ICD G47.61), mild, treatment may be indicated. Clinical correlation advised. Subjective Initial [place] Sleepiness Scale score: 1 (08/18/23) Current [place] Sleepiness Scale score: 0 (12/03/23) Allergies and Home Medications Known drug allergies: Yes (as listed) Drug allergies reviewed: Yes Home medication list reviewed: Yes (Losartan 25 mg daily added) Allergy and home medication list: Allergies Sulfa (Sulfonamide Antibiotics) Adverse Reaction Nausea Review of Systems Review of systems same as previous: Yes (no changes) Physical Exam Vital signs obtained and entered by: Fabby Garcia NP Blood Pressure: 162/80 (pt states high in office; just started new BP med) Cuff size: long (left arm) Heart Rate: 71 O2 Saturation: 98 Height: 5 ft 4 in Weight: 229 lb 3.2 oz Body Mass Index: 39.3 BMI Classification: Obese Impression and Plan 1. Obstructive Sleep Apnea-Hypopnea Syndrome, mild. Patient returns after titration study to initiate CPAP therapy. She tolerated CPAP therapy well on the night of the study and her optimal pressure was seen to be 8 cmH2O. Positive pressure therapy could benefit insulin resistance and hypertension. The patient will be started on nasal autoCPAP therapy with pressure set at 5-10 cmH2O. Compliance guidelines also reviewed. A copy of compliance guidelines will be given for reference at check out. She voiced understanding and agreement with plan of care. 2. Periodic limb movement, mild, that did not fragment patients sleep. Periodic limb movement of sleep (PLMS) is characterized by episodes of repetitive limb movements that occur during sleep and usually involve the lower limbs. The etiology is unknown. Patient was advised that no treatment is needed at this time. If symptoms increase, then further evaluation is indicated. 3. Obesity, unspecified. Currently patients BMI is 39.3. Obesity increases the risk of apnea, CPAP pressure requirements and overall health risks especially cardiovascular and diabetes. Thus patient is advised to lose weight. * Nasal auto CPAP therapy, pressure at 5-10 cmH2O. * Attempt to lose weight. * Avoid alcohol consumption near bedtime. * Avoid supine sleep until using CPAP. * The patient is again cautioned about driving until sleepiness completely resolves. * Return one month after CPAP obtained. I will assess response to therapy and compliance at that time. This note may have been all or partially generated using voice recognition software. Although every effort is made to edit content, emergency medicine physician errors may occur. Occasional wrongword or "soundalike" substitutions may have occurred due to the inherent limitations of voice recognition software. Please read the note carefully and recognize, using context, where these substitutions have occurred. Counseling Topics: Weight loss health impact Prescriptions: Auto CPAP Plan: compliance follow up after initiating PAP therapy Visit Type: In Office Time Spent with Patient (minutes): 29 Provider Statement: I spent 100% of the Face to Face Visit with the patient with greater than 50% spent counseling the patient and coordination of care.
[2023-12-03 11:38] VITALS: BP 162/80; O2SAT 98
== END 2023-12-03 10:53 | disposition home or self-care (01) ==
LOC: SC 10:52
PROVIDERS: ATTEND Nurse Practitioner Family
DX: G47.33 Obstructive sleep apnea (adult) (pediatric) (principal); G47.61 Periodic limb movement disorder; E66.9 Obesity, unspecified; Z68.39 Body mass index [BMI] 39.0-39.9, adult
CPT/HCPCS: 99213; G0463; 99212

== ENCOUNTER 2023-12-08 08:45 | Outpatient (CLI) | payer MEDICARE, OTHER ==
[2023-12-08 09:12] LABS: BASOPHILS % (AUTO) 0.6 %; EOSINOPHILS # (AUTO) 0.3 10^3/uL (0.0-0.7); EOSINOPHILS % (AUTO) 3.8 %; HCT - HEMATOCRIT 42.4 % (37.0-47.0); HGB - HEMOGLOBIN 13.8 g/dL (12.0-16.0); LYMPHOCYTES # (AUTO) 2.1 10^3/uL (1.5-3.5); LYMPHOCYTES % (AUTO) 29.8 %; MEAN CORPUSCULAR HGB CONC 32.5 g/dL (32.0-36.0); MEAN CORPUSCULAR VOLUME 89.1 fL (81.0-99.0); MEAN PLATELET VOLUME 11.1 fL (7.9-10.8); MONOCYTES # (AUTO) 0.6 10^3/uL (0.0-1.0); MONOCYTES % (AUTO) 8.1 %; NEUTROPHILS % (AUTO) 57.6 %; PLT - PLATELET COUNT 246 10^3/uL (130-450); RED BLOOD COUNT 4.76 10^6/uL (4.20-5.40); RED CELL DISTRIBUTION WIDTH 14.2 % (12.0-15.0); WHITE BLOOD COUNT 6.9 x10^3/uL (4.8-10.8)
[2023-12-08 09:31] LABS: ALBUMIN 4.1 g/dL (3.2-5.5); ALBUMIN/GLOBULIN RATIO 1.3 (1.0-2.2); ALKALINE PHOSPHATASE 63 IU/L (42-121); ALT ALANINE AMINOTRANSFERASE 19 IU/L (10-60); AST ASPARTATE AMINOTRANSFERASE 17 IU/L (10-42); BILIRUBIN,TOTAL 0.5 mg/dL (0.2-1.0); BUN - BLOOD UREA NITROGEN 24 mg/dL (6-20); CALCIUM 9.7 mg/dL (8.5-10.3); CARBON DIOXIDE - CO2 29 mmol/L (21-32); CHLORIDE 104 mmol/L (101-111); CHOL/HDL RATIO 2.5 (<4.4); CHOLESTEROL 190 mg/dL; CREATININE 0.8 mg/dL (0.6-1.3); GFR - MDRD 71 (>89); GLUCOSE 137 mg/dL (74-104); HDL CHOLESTEROL 75 mg/dL; LDL CHOLESTEROL,CALCULATED 98 mg/dL; LDL/HDL RATIO 1.3 (<4.4); POTASSIUM 4.5 mmol/L (3.5-4.5); SODIUM 138 mmol/L (135-145); TOTAL PROTEIN 7.2 g/dL (6.4-8.9); TRIGLYCERIDES 83 mg/dL; VLDL CHOLESTEROL 17 mg/dL
[2023-12-08 09:41] LABS: THYROID STIMULATING HORMONE 2.06 uIU/mL (0.34-5.60)
[2023-12-08 10:10] LABS: ESTIMATED AVERAGE GLUCOSE 143 mg/dL (70-100); HEMOGLOBIN A1c% 6.6 % (4.27-6.07)
== END 2023-12-08 08:46 | disposition home or self-care (01) ==
LOC: LAB 08:45
PROVIDERS: ATTEND Physician Assistant
DX: E03.9 Hypothyroidism, unspecified (principal); E11.9 Type 2 diabetes mellitus without complications
CPT/HCPCS: 36415; 80053; 80061; 83036; 83721; 84439; 84443; 84481; 85025

== ENCOUNTER 2023-12-15 12:29 | Outpatient (CLI) | payer MEDICARE, OTHER ==
--- NOTE | 2023-12-16 11:27 | Mammography Report ---
BILATERAL DIGITAL SCREENING MAMMOGRAM 3D/2D: 12/15/2023 CLINICAL: Routine screening. Comparison is made to exams dated: 06/22/2018 mammogram, 09/24/2021 mammogram, 06/02/2018 mammogram, mammogram, and 11/09/2014 mammogram - [facility]. There are scattered areas of fibroglandular density (category b / 25%-50% glandular tissue). No significant masses, calcifications, or other findings are seen in either breast. There has been no significant interval change. IMPRESSION: NEGATIVE There is no mammographic evidence of malignancy. A 1 year screening mammogram is recommended. Based on the Tyrer Cuzick model (a risk assessment model) the patient's lifetime risk is 2.6% and her 10 year risk is 1.9%. According to the ACR, ACS, and NCCN guidelines, an annual breast MRI exam chantell g with mammogram is recommended if the patient's lifetime risk is 20% or greater. This exam was interpreted at Station ID: [id number]. NOTE: For mammograms, a report in lay terms will be sent to the patient. Approximately 15% of breast malignancies will not be visualized mammographically. In the management of a palpable breast mass, a negative mammogram must not discourage biopsy of a clinically suspicious lesion. Electronically Signed By: Magaly zhou/teresa:12/15/2023 17:13:32 letter sent: No_Letter ACR BI-RADS Category 1: Negative [id number] PARENCHYMAL PATTERN: (A) - The breast(s) demonstrate(s) scattered fibroglandular densities. BI-RADS CATEGORY: (1) - 1 RECOMMENDATION: (ANNUAL) - Recommend routine annual screening mammography. [id number] 1 year screening LATERALITY: (B)
== END 2023-12-15 12:30 | disposition home or self-care (01) ==
LOC: DI 12:29
DX: Z12.31 Encounter for screening mammogram for malignant neoplasm of breast (principal)